=== PATIENT | male | born 1975 | race African-American/Black ===

== ENCOUNTER 2020-03-06 07:49 | Emergency (ER) | payer SELFPAY ==
[~2020-03-06] VITALS: Ht 188 cm; Wt 88.0 kg
[2020-03-06] MEDS ORDERED: KETOROLAC 30MG/ML VIAL IM ONE (08:15)
[2020-03-06 09:12] VITALS: BP 122/76
== END 2020-03-06 09:16 | disposition home or self-care (01) ==
LOC: ER 08:08
DX: S40.012A Contusion of left shoulder, initial encounter (principal); Y08.89XA Assault by other specified means, initial encounter; Y93.89 Activity, other specified; Y92.89 Other specified places as the place of occurrence of the external cause; Y99.8 Other external cause status
CPT/HCPCS: 73030; 96372; 99283; J1885

== ENCOUNTER 2021-02-04 04:29 | Inpatient (IN) | payer MEDICAID ==
[~2021-02-04] VITALS: Ht 188 cm; Wt 82.6 kg
[2021-02-04] MEDS ORDERED: ACETAMINOPHEN 325MG TABLET PO STA (04:55)
[2021-02-04] MEDS ORDERED: ONDANSETRON HCL 4MG/2ML INJ IV STA (04:55)
[2021-02-04] MEDS ORDERED: AZITHROMYCIN 500 MG in DEXT 5% WATER 250 ML IV ONE (05:00)
[2021-02-04] MEDS ORDERED: SODIUM CHLORIDE 0.9% 1,000 ML IV ONE (05:00)
[2021-02-04] MEDS ORDERED: CEFTRIAXONE 1 G PREMIX 50 ML IV ONE (05:00)
[2021-02-04 05:23] LABS: BG BASE EXCESS -0.6 mmol/L (-2.0-2.0); BG CARBOXYHEMOGLOBIN 1.6 % (0.5-1.5); BG HCO3 ACT 24.3 mmol/L (22.0-26.0); BG METHEMOGLOBIN 0.1 % (0.0-1.5); BG OXYGEN SATURATION 95.9 % (92.0-98.5); BG OXYHEMOGLOBIN 94.3 % (94.0-97.0); BG PCO2 41.2 mmHg (35.0-45.0); BG PH 7.389 (7.350-7.450); BG PO2 82.3 mmHg (75.0-100.0); BG TOTAL HEMOGLOBIN 13.4 g/dL (12.0-18.0)
[2021-02-04 05:25] LABS: CHLORIDE 104 mEq/L (98-107)
[2021-02-04 05:27] LABS: BASOPHILS % 0.5 % (0.0-2.0); EOSINOPHILS % 2.5 % (0.0-5.0); HEMATOCRIT. 40.5 % (42.0-52.0); HEMOGLOBIN. 13.2 g/dL (14.0-18.0); MEAN CORPUSCULAR VOLUME 98.6 fL (80.0-94.0); MEAN PLATELET VOLUME 10.4 fl (7.4-10.4); MONOCYTES % 5.6 % (2.0-8.0); NEUTROPHILS % 82.4 % (40.0-76.0); PLATELET 253 x1000/uL (130-400); RED BLOOD CELL COUNT 4.11 mill/uL (4.7-6.1); RED CELL DISTRIBUTION WIDTH 13.1 % (11.6-14.6)
[2021-02-04 06:01] LABS: D-DIMER 3.04 mg/L FEU (<0.50)
[2021-02-04] MEDS ORDERED: ACETAMINOPHEN 325MG TABLET PO PRN ×2 (08:00)
[2021-02-04] MEDS ORDERED: ZOLPIDEM TARTRATE 5MG TABLET PO PRN (08:00)
[2021-02-04] MEDS ORDERED: NOREPINEPHRINE 8 MG in DEXT 5% WATER 242 ML IV PRN ×2 (08:00→08:45)
[2021-02-04] MEDS ORDERED: GUAIFENESIN 200MG/10ML SUGAR FREE UDC PO PRN (08:00)
[2021-02-04] MEDS ORDERED: ALBUTEROL 6.7GM HFA INHALER ORI PRN (08:00)
[2021-02-04] MEDS ORDERED: NITROGLYCERIN 0.4MG TABLET SL SL PRN (08:00)
[2021-02-04] MEDS ORDERED: ONDANSETRON HCL 4MG/2ML INJ IV PRN (08:00)
[2021-02-04] MEDS ORDERED: DOCUSATE SODIUM 100MG CAPSULE PO PRN (08:00)
[2021-02-04] MEDS ORDERED: MAGNESIUM/ALUMINUM HYDROXIDE/SIMETHICONE 30ML UDC PO PRN (08:00)
[2021-02-04] MEDS ORDERED: CLONIDINE 0.1MG TABLET PO PRN (08:00)
[2021-02-04 08:54] LABS: ETHANOL BLOOD < 10 mg/dL
[2021-02-04] MEDS: GUAIFENESIN/DM 600MG/30MG ER TAB 12HR PO SCH ×2 (08:54→21:19)
[2021-02-04] MEDS: ASCORBIC ACID 500 MG TABLET PO SCH ×2 (08:54→21:19)
[2021-02-04] MEDS: ASPIRIN 81MG EC TABLET PO SCH (08:54)
[2021-02-04] MEDS: SPIRONOLACTONE 25MG TABLET PO SCH ×2 (08:54→21:19)
[2021-02-04] MEDS: FAMOTIDINE 20MG TABLET PO SCH ×2 (08:54→21:19)
[2021-02-04] MEDS: FUROSEMIDE 40MG/4ML VIAL IVP SCH ×2 (08:55→17:50)
[2021-02-04] MEDS: ENOXAPARIN 40MG/0.4ML SYR SUBCUT SCH (08:55)
[2021-02-04] MEDS: ZINC SULFATE 220 MG ( 50 ) CAPSULE PO SCH (08:55)
[2021-02-04 08:56] LABS: TOTAL IRON BINDING CAPACITY 296 ug/dL (250-450)
[2021-02-04 08:57] LABS: LDL CHOLESTEROL 72 mg/dL (5-100)
[2021-02-04 08:58] LABS: HDL CHOLESTEROL 83 mg/dL (40-59)
[2021-02-04 08:59] LABS: T4 FREE 1.17 ng/dL (0.76-1.46)
[2021-02-04 09:41] LABS: *BARBITURATES SCREEN URINE NEGATIVE (NEGATIVE); *BENZODIAZEPINES SCREEN URINE NEGATIVE (NEGATIVE); *COCAINE SCREEN URINE PRESUMTIVE POSITIVE (NEGATIVE); METHADONE URINE SCREEN NEGATIVE (NEGATIVE); OPIATES URINE SCREEN NEGATIVE (NEGATIVE)
[2021-02-04 09:42] LABS: *AMPHETAMINES SCREEN URINE PRESUMTIVE POSITIVE (NEGATIVE); CANNABINOID URINE SCREEN PRESUMTIVE POSITIVE (NEGATIVE); PHENCYCLIDINE URINE SCREEN NEGATIVE (NEGATIVE)
[2021-02-04] MEDS: CHOLECALCIFEROL (D3) 1000 UNIT TABLET PO SCH (09:50)
[2021-02-04] MEDS: ALBUTEROL 6.7GM HFA INHALER ORI SCH ×3 (10:33→20:59)
[2021-02-04 15:15] VITALS: BP 144/73
[2021-02-04 20:00] VITALS: BP 130/86
[2021-02-04 21:33] LABS: CREATINE KINASE MB FRACTION 4.7 ng/mL (0.5-3.6)
[2021-02-05] VITALS: BP 111/61
[2021-02-05] MEDS: ALBUTEROL 6.7GM HFA INHALER ORI SCH (01:28)
[2021-02-05] MEDS ORDERED: ALBUTEROL (0.083%) 2.5MG/3ML NEB HHN PRN (02:15)
[2021-02-05 04:00] VITALS: BP 105/57
[2021-02-05 05:39] LABS: BASOPHILS % 0.5 % (0.0-2.0); EOSINOPHILS % 1.7 % (0.0-5.0); HEMATOCRIT. 39.1 % (42.0-52.0); HEMOGLOBIN. 12.9 g/dL (14.0-18.0); LYMPHOCYTES % 9.5 % (20.0-50.0); MEAN CORPUSCULAR HEMOGLOBIN 32.7 pg (28.0-32.0); MEAN CORPUSCULAR VOLUME 99.2 fL (80.0-94.0); MEAN PLATELET VOLUME 10.9 fl (7.4-10.4); MONOCYTES % 9.4 % (2.0-8.0); NEUTROPHILS % 78.9 % (40.0-76.0); PLATELET 226 x1000/uL (130-400); RED BLOOD CELL COUNT 3.94 mill/uL (4.7-6.1); RED CELL DISTRIBUTION WIDTH 13.4 % (11.6-14.6)
[2021-02-05 05:50] LABS: CHLORIDE 102 mEq/L (98-107)
[2021-02-05] MEDS ORDERED: AZITHROMYCIN 500 MG in DEXT 5% WATER 250 ML IV SCH (06:00)
[2021-02-05] MEDS ORDERED: ALBUTEROL (0.083%) 2.5MG/3ML NEB HHN SCH (06:00)
[2021-02-05] MEDS ORDERED: CEFTRIAXONE 1 G PREMIX 50 ML IV SCH (06:00)
[2021-02-05 06:01] LABS: CREATINE KINASE 511 IU/L (39-308); PHOSPHORUS 2.9 mg/dL (2.5-4.9)
[2021-02-05] MEDS: AZITHROMYCIN 500 MG in DEXT 5% WATER 250 ML IV SCH (06:05)
[2021-02-05] MEDS: FUROSEMIDE 40MG/4ML VIAL IVP SCH ×2 (06:05→17:46)
[2021-02-05 06:06] LABS: CREATINE KINASE MB FRACTION 2.4 ng/mL (0.5-3.6)
[2021-02-05 08:35] VITALS: BP 103/66
[2021-02-05] MEDS: CHOLECALCIFEROL (D3) 1000 UNIT TABLET PO SCH (09:05)
[2021-02-05] MEDS: ASPIRIN 81MG EC TABLET PO SCH (09:05)
[2021-02-05] MEDS: SPIRONOLACTONE 25MG TABLET PO SCH ×2 (09:05→21:01)
[2021-02-05] MEDS: FAMOTIDINE 20MG TABLET PO SCH ×2 (09:06→20:58)
[2021-02-05] MEDS: ASCORBIC ACID 500 MG TABLET PO SCH ×2 (09:06→20:58)
[2021-02-05] MEDS: ZINC SULFATE 220 MG ( 50 ) CAPSULE PO SCH (09:06)
[2021-02-05] MEDS: GUAIFENESIN/DM 600MG/30MG ER TAB 12HR PO SCH ×2 (09:06→20:57)
[2021-02-05] MEDS: ENOXAPARIN 40MG/0.4ML SYR SUBCUT SCH (09:09)
[2021-02-05] MEDS: CEFTRIAXONE 1,000 MG in DEXTROSE 5% WATER 50 ML IV SCH (09:09)
[2021-02-05] MEDS ORDERED: IPRATROPIUM/ALBUTEROL 0.5-3(2.5)MG/3ML NEB HHN PRN (12:00)
[2021-02-05] MEDS: IPRATROPIUM/ALBUTEROL 0.5-3(2.5)MG/3ML NEB HHN SCH ×2 (13:05→21:18)
[2021-02-05 16:49] VITALS: BP 111/80
[2021-02-05 20:00] VITALS: BP 100/59
[2021-02-06] VITALS (7 sets, daily range): BP systolic 76–114; BP diastolic 46–72
[2021-02-06] MEDS: IPRATROPIUM/ALBUTEROL 0.5-3(2.5)MG/3ML NEB HHN SCH ×5 (02:29→21:06)
[2021-02-06] MEDS: AZITHROMYCIN 500 MG in DEXT 5% WATER 250 ML IV SCH (05:42)
[2021-02-06] MEDS: FUROSEMIDE 40MG/4ML VIAL IVP SCH ×2 (05:42→17:29)
[2021-02-06 06:03] LABS: CHLORIDE 103 mEq/L (98-107)
[2021-02-06 06:20] LABS: PHOSPHORUS 3.4 mg/dL (2.5-4.9)
[2021-02-06 06:25] LABS: BASOPHILS % 0.7 % (0.0-2.0); EOSINOPHILS % 6.1 % (0.0-5.0); HEMATOCRIT. 39.4 % (42.0-52.0); LYMPHOCYTES % 25.2 % (20.0-50.0); MEAN CORPUSCULAR HEMOGLOBIN 32.6 pg (28.0-32.0); MEAN CORPUSCULAR VOLUME 98.5 fL (80.0-94.0); MEAN PLATELET VOLUME 10.4 fl (7.4-10.4); MONOCYTES % 11.9 % (2.0-8.0); NEUTROPHILS % 56.1 % (40.0-76.0); PLATELET 233 x1000/uL (130-400); RED CELL DISTRIBUTION WIDTH 12.9 % (11.6-14.6)
[2021-02-06] MEDS: BUDESONIDE 0.5MG/2ML NEB HHN SCH ×2 (08:00→21:05)
[2021-02-06] MEDS ORDERED: LISINOPRIL 5MG TABLET PO SCH (09:00)
[2021-02-06] MEDS ORDERED: IOHEXOL-350 100 ML BOTTLE ONE (09:08)
[2021-02-06] MEDS: CHOLECALCIFEROL (D3) 1000 UNIT TABLET PO SCH (09:11)
[2021-02-06] MEDS: ENOXAPARIN 40MG/0.4ML SYR SUBCUT SCH (09:11)
[2021-02-06] MEDS: GUAIFENESIN/DM 600MG/30MG ER TAB 12HR PO SCH ×2 (09:12→21:45)
[2021-02-06] MEDS: ZINC SULFATE 220 MG ( 50 ) CAPSULE PO SCH (09:13)
[2021-02-06] MEDS: FAMOTIDINE 20MG TABLET PO SCH ×2 (09:13→21:45)
[2021-02-06] MEDS: ASPIRIN 81MG EC TABLET PO SCH (09:13)
[2021-02-06] MEDS: ASCORBIC ACID 500 MG TABLET PO SCH ×2 (09:13→21:45)
[2021-02-06] MEDS: CEFTRIAXONE 1,000 MG in DEXTROSE 5% WATER 50 ML IV SCH (09:19)
[2021-02-06] MEDS: SPIRONOLACTONE 25MG TABLET PO SCH ×2 (09:20→21:45)
[2021-02-07] VITALS: BP 97/58
[2021-02-07] MEDS: IPRATROPIUM/ALBUTEROL 0.5-3(2.5)MG/3ML NEB HHN SCH ×4 (01:28→20:25)
[2021-02-07 04:00] VITALS: BP 94/58
[2021-02-07] MEDS: FUROSEMIDE 40MG/4ML VIAL IVP SCH (06:47)
[2021-02-07 08:00] VITALS: BP 111/69
[2021-02-07] MEDS: KETOROLAC 15MG/ML VIAL IV PRN ×2 (08:25→21:08)
[2021-02-07] MEDS: ASCORBIC ACID 500 MG TABLET PO SCH ×2 (08:26→21:09)
[2021-02-07] MEDS: CHOLECALCIFEROL (D3) 1000 UNIT TABLET PO SCH (08:26)
[2021-02-07] MEDS: FAMOTIDINE 20MG TABLET PO SCH ×2 (08:26→21:23)
[2021-02-07] MEDS: ASPIRIN 81MG EC TABLET PO SCH (08:26)
[2021-02-07] MEDS: GUAIFENESIN/DM 600MG/30MG ER TAB 12HR PO SCH ×2 (08:26→21:23)
[2021-02-07] MEDS: SPIRONOLACTONE 25MG TABLET PO SCH ×2 (08:26→21:00)
[2021-02-07] MEDS: ENOXAPARIN 40MG/0.4ML SYR SUBCUT SCH (08:27)
[2021-02-07] MEDS: ZINC SULFATE 220 MG ( 50 ) CAPSULE PO SCH (08:28)
[2021-02-07] MEDS: BUDESONIDE 0.5MG/2ML NEB HHN SCH ×2 (09:36→20:25)
[2021-02-07 12:00] VITALS: BP 97/61
[2021-02-07 12:29] LABS: CHLORIDE 100 mEq/L (98-107)
[2021-02-07] MEDS: METOPROLOL TARTRATE 25MG TABLET PO SCH ×2 (12:45→21:00)
[2021-02-07 16:00] VITALS: BP 86/56
[2021-02-07] MEDS: FUROSEMIDE 40MG TABLET PO SCH (18:10)
[2021-02-08] VITALS: BP 110/54
[2021-02-08] MEDS: IPRATROPIUM/ALBUTEROL 0.5-3(2.5)MG/3ML NEB HHN SCH ×2 (00:20→07:52)
[2021-02-08 04:00] VITALS: BP 110/64
[2021-02-08] MEDS: FUROSEMIDE 40MG TABLET PO SCH (05:06)
[2021-02-08] MEDS: BUDESONIDE 0.5MG/2ML NEB HHN SCH (07:52)
[2021-02-08 08:00] VITALS: BP 93/50
[2021-02-08] MEDS: METOPROLOL TARTRATE 25MG TABLET PO SCH (08:29)
[2021-02-08] MEDS: CHOLECALCIFEROL (D3) 1000 UNIT TABLET PO SCH (08:48)
[2021-02-08] MEDS: GUAIFENESIN/DM 600MG/30MG ER TAB 12HR PO SCH (08:48)
[2021-02-08] MEDS: ZINC SULFATE 220 MG ( 50 ) CAPSULE PO SCH (08:48)
[2021-02-08] MEDS: ASPIRIN 81MG EC TABLET PO SCH (08:48)
[2021-02-08] MEDS: SPIRONOLACTONE 25MG TABLET PO SCH (08:49)
[2021-02-08] MEDS: FAMOTIDINE 20MG TABLET PO SCH (08:49)
[2021-02-08] MEDS: ASCORBIC ACID 500 MG TABLET PO SCH (08:49)
[2021-02-08] MEDS: ENOXAPARIN 40MG/0.4ML SYR SUBCUT SCH (08:50)
[2021-02-08 09:35] VITALS: BP 93/50
== END 2021-02-08 10:10 | disposition home or self-care (01) | DRG 720 ==
LOC: ER 04:43 → 7WST 05:17 → EDBEDREQSVC 11:05 → ENRESERV 12:34 → 6WST 02-05 01:50
PROVIDERS: ADMIT Internal Medicine; ATTEND Internal Medicine
DX: A41.9 Sepsis, unspecified organism (principal); J96.01 Acute respiratory failure with hypoxia; I21.A1 Myocardial infarction type 2; I47.2 Ventricular tachycardia; E44.0 Moderate protein-calorie malnutrition; I50.43 Acute on chronic combined systolic (congestive) and diastolic (congestive) heart failure; I42.0 Dilated cardiomyopathy; E83.51 Hypocalcemia; J18.9 Pneumonia, unspecified organism; J44.0 Chronic obstructive pulmonary disease with (acute) lower respiratory infection; F12.10 Cannabis abuse, uncomplicated; F14.10 Cocaine abuse, uncomplicated; F17.210 Nicotine dependence, cigarettes, uncomplicated; I34.0 Nonrheumatic mitral (valve) insufficiency; R74.01 Elevation of levels of liver transaminase levels; R04.2 Hemoptysis; I11.0 Hypertensive heart disease with heart failure; Z68.23 Body mass index [BMI] 23.0-23.9, adult; Y92.89 Other specified places as the place of occurrence of the external cause; F10.10 Alcohol abuse, uncomplicated; F15.10 Other stimulant abuse, uncomplicated; Z71.51 Drug abuse counseling and surveillance of drug abuser
CPT/HCPCS: 36415; 36600; 71045; 71275; 80048; 80053; 80061; 80305; 80320; 82375; 82550; 82553; 82607; 82746; 82805; 83036; 83540; 83550; 83605; 83615; 83735; 83880; 84100; 84145; 84439; 84443; 84484; 85025; 85379; 87070; 93005; 93306; 93970; 94640; 97116; 97161; 97166; 97530; 97535; 99291; J0456; J0696; J1650; J1885; J1940; J2405; J7030; J7040; J7060; J7626; Q9967; U0003; G0480

== ENCOUNTER 2021-07-28 05:30 | Inpatient (IN) | payer MEDICAID ==
[~2021-07-28] VITALS: Ht 185.4 cm; Wt 65.6 kg
[2021-07-28] VITALS (12 sets, daily range): BP systolic 94–134; BP diastolic 56–97
[~2021-07-28 05:30] MED LIST: CARV3.1242 MT; FURO-151 MT; LOSA25TA26 MT; POTA20TA82 MT
[2021-07-28 07:23] LABS: BASOPHILS % 0.5 % (0.0-2.0); EOSINOPHILS % 3.2 % (0.0-5.0); HEMATOCRIT. 35.2 % (42.0-52.0); HEMOGLOBIN. 11.2 g/dL (14.0-18.0); LYMPHOCYTES % 14.3 % (20.0-50.0); MEAN CORPUSCULAR VOLUME 100.4 fL (80.0-94.0); MEAN PLATELET VOLUME 9.6 fl (7.4-10.4); MONOCYTES % 7.6 % (2.0-8.0); NEUTROPHILS % 74.4 % (40.0-76.0); PLATELET 226 x1000/uL (130-400); RED BLOOD CELL COUNT 3.51 mill/uL (4.7-6.1); RED CELL DISTRIBUTION WIDTH 17.9 % (11.6-14.6)
[2021-07-28 07:27] LABS: CHLORIDE 112 mEq/L (98-107)
[2021-07-28] MEDS ORDERED: CEFTRIAXONE 1 G PREMIX 50 ML IV ONE (08:00)
[2021-07-28] MEDS ORDERED: AZITHROMYCIN 500MG/250ML 250 ML IV ONE (08:00)
[2021-07-28] MEDS ORDERED: NITROGLYCERIN 0.4MG TABLET SL SL ONE (10:00)
[2021-07-28] MEDS ORDERED: LORAZEPAM 2MG/ML CPJ IV ONE ×2 (10:30→16:30)
[2021-07-28] MEDS ORDERED: LORAZEPAM 2MG/ML CPJ ONE (10:34)
[2021-07-28] MEDS ORDERED: FENTANYL CITRATE/PF 50MCG/ML 2ML VIAL IV ONE (10:45)
[2021-07-28] MEDS ORDERED: MIDAZOLAM HCL 100 MG in DEXT 5% WATER 80 ML IV ONE (10:45)
[2021-07-28] MEDS ORDERED: ETOMIDATE 2MG/ML 10ML VIAL IV ONE ×2 (10:45→13:53)
[2021-07-28] MEDS ORDERED: SUCCINYLCHOLINE CHLORIDE 200MG/10ML IV ONE ×2 (10:45→13:53)
[2021-07-28] MEDS ORDERED: FENTANYL CITRATE/PF 50MCG/ML 2ML VIAL ONE (10:49)
[2021-07-28 11:29] LABS: BG BASE EXCESS -4.9 mmol/L (-2.0-2.0); BG CARBOXYHEMOGLOBIN 0.2 % (0.5-1.5); BG DEOXYHEMOGLOBIN 0.5 % (0.0-5.0); BG FRACTION INSPIRED OXYGEN 100; BG HCO3 ACT 21.9 mmol/L (22.0-26.0); BG METHEMOGLOBIN 0.6 % (0.0-1.5); BG OXYGEN SATURATION 99.5 % (92.0-98.5); BG OXYHEMOGLOBIN 98.7 % (94.0-97.0); BG PH 7.278 (7.350-7.450); BG PO2 306.1 mmHg (75.0-100.0); BG SAMPLE SITE RIGHT FEMORAL; BG TOTAL HEMOGLOBIN 12.2 g/dL (12.0-18.0); BG VENT MODE VENT - AC
[2021-07-28] MEDS ORDERED: NOREPINEPHRINE 8 MG in DEXT 5% WATER 242 ML IV STA (11:30)
[2021-07-28] MEDS ORDERED: DOBUTAMINE 250MG PREMIX 250 ML IV ONE (11:30)
[2021-07-28] MEDS ORDERED: NOREPINEPHRINE 8MG/250ML PMX 250 ML IV STA (11:38)
[2021-07-28 12:45] LABS: CHLORIDE 110 mEq/L (98-107)
[2021-07-28] MEDS ORDERED: ACETAMINOPHEN 325MG TABLET PO PRN ×2 (13:00)
[2021-07-28] MEDS ORDERED: ENOXAPARIN 40MG/0.4ML SYR SUBCUT SCH (13:00)
[2021-07-28] MEDS ORDERED: KETOROLAC 15MG/ML VIAL IV PRN (13:00)
[2021-07-28] MEDS ORDERED: NITROGLYCERIN 0.4MG TABLET SL SL PRN (13:00)
[2021-07-28] MEDS ORDERED: ONDANSETRON HCL 4MG/2ML INJ IV PRN (13:00)
[2021-07-28] MEDS ORDERED: DOCUSATE SODIUM 100MG CAPSULE PO PRN (13:00)
[2021-07-28] MEDS ORDERED: CLONIDINE 0.1MG TABLET PO PRN (13:00)
[2021-07-28] MEDS ORDERED: MAGNESIUM/ALUMINUM HYDROXIDE/SIMETHICONE 30ML UDC PO PRN (13:00)
[2021-07-28] MEDS ORDERED: GUAIFENESIN 200MG/10ML SUGAR FREE UDC PO PRN (13:00)
[2021-07-28] MEDS ORDERED: ALBUTEROL 6.7GM HFA INHALER ORI PRN (13:00)
[2021-07-28 14:31] LABS: T4 FREE 1.12 ng/dL (0.76-1.46)
[2021-07-28 14:39] LABS: ETHANOL BLOOD < 10 mg/dL
[2021-07-28] MEDS: METHYLPREDNISOLONE SOD SUCC 125 MG/2 ML VIAL IV SCH (14:44)
[2021-07-28] MEDS: PANTOPRAZOLE SODIUM 40 MG/VIAL IV SCH (14:44)
[2021-07-28 14:48] LABS: CREATINE KINASE 354 IU/L (39-308); CREATINE KINASE MB FRACTION 2.7 ng/mL (0.5-3.6)
[2021-07-28 14:48] LABS: FOLIC ACID (FOLATE) SERUM 7.9 ng/mL (>5.38)
[2021-07-28] MEDS ORDERED: ALBUTEROL 6.7GM HFA INHALER ORI SCH (15:00)
[2021-07-28] MEDS ORDERED: IOHEXOL-350 100 ML BOTTLE ONE ×2 (16:01→23:40)
[2021-07-28] MEDS ORDERED: SODIUM POLYSTYRENE SULFONATE 15 G/60 ML BOT PO NR (16:30)
[2021-07-28 16:33] LABS: *AMPHETAMINES SCREEN URINE NEGATIVE (NEGATIVE)
[2021-07-28 16:34] LABS: *BARBITURATES SCREEN URINE NEGATIVE (NEGATIVE); *BENZODIAZEPINES SCREEN URINE PRESUMTIVE POSITIVE (NEGATIVE); *COCAINE SCREEN URINE PRESUMTIVE POSITIVE (NEGATIVE); CANNABINOID URINE SCREEN PRESUMTIVE POSITIVE (NEGATIVE); METHADONE URINE SCREEN NEGATIVE (NEGATIVE); OPIATES URINE SCREEN NEGATIVE (NEGATIVE); PHENCYCLIDINE URINE SCREEN NEGATIVE (NEGATIVE)
[2021-07-28] MEDS ORDERED: NOREPINEPHRINE 8MG/250ML PMX 250ML IV PRN (17:00)
[2021-07-28] MEDS: MIDAZOLAM HCL 100 MG in SODIUM CHLORIDE 0.9% 100 ML IV PRN (17:10)
[2021-07-28] MEDS ORDERED: FENTANYL CITRATE/PF 2,500 MCG in SODIUM CHLORIDE 0.9% 200 ML IV PRN (17:15)
[2021-07-28] MEDS: FENTANYL CITRATE/PF 2,500 MCG in SODIUM CHLORIDE 0.9% 200 ML IV PRN (17:20)
[2021-07-28] MEDS: FUROSEMIDE 40MG/4ML VIAL IVP SCH (18:38)
[2021-07-28] MEDS: SPIRONOLACTONE 25MG TABLET PO SCH (19:11)
[2021-07-28] MEDS ORDERED: NOREPINEPHRINE 8 MG in DEXT 5% WATER 242 ML IV PRN (23:00)
[2021-07-28 23:41] LABS: CREATINE KINASE MB FRACTION 3.7 ng/mL (0.5-3.6)
[2021-07-29] VITALS (84 sets, daily range): BP systolic 60–133; BP diastolic 38–83
[2021-07-29] MEDS: ENOXAPARIN 80MG/0.8ML SYR SUBCUT SCH ×3 (01:04→22:21)
[2021-07-29] MEDS: FENTANYL CITRATE/PF 2,500 MCG in SODIUM CHLORIDE 0.9% 200 ML IV PRN ×2 (01:05→06:20)
[2021-07-29] MEDS: MIDAZOLAM HCL 100 MG in SODIUM CHLORIDE 0.9% 100 ML IV PRN (01:08)
[2021-07-29] MEDS ORDERED: MIDAZOLAM 100MG/100ML PMX 100 ML IV PRN (01:15)
[2021-07-29] MEDS ORDERED: MIDAZOLAM HCL 100 MG in SODIUM CHLORIDE 0.9% 100 ML IV PRN (01:30)
[2021-07-29] MEDS ORDERED: NOREPINEPHRINE 8 MG in DEXT 5% WATER 242 ML IV PRN (03:00)
[2021-07-29 05:49] LABS: BASOPHILS % 0.2 % (0.0-2.0); HEMOGLOBIN. 11.2 g/dL (14.0-18.0); LYMPHOCYTES % 7.1 % (20.0-50.0); MEAN CORPUSCULAR HEMOGLOBIN 32.6 pg (28.0-32.0); MEAN CORPUSCULAR VOLUME 98.3 fL (80.0-94.0); MEAN PLATELET VOLUME 10.3 fl (7.4-10.4); MONOCYTES % 8.6 % (2.0-8.0); NEUTROPHILS % 84.1 % (40.0-76.0); PLATELET 218 x1000/uL (130-400); RED BLOOD CELL COUNT 3.45 mill/uL (4.7-6.1); RED CELL DISTRIBUTION WIDTH 18.7 % (11.6-14.6)
[2021-07-29 05:53] LABS: CHLORIDE 111 mEq/L (98-107)
[2021-07-29 06:06] LABS: PHOSPHORUS 2.7 mg/dL (2.5-4.9)
[2021-07-29 06:07] LABS: LDL CHOLESTEROL 80 mg/dL (5-100)
[2021-07-29 06:09] LABS: HDL CHOLESTEROL 58 mg/dL (40-59)
[2021-07-29] MEDS: FUROSEMIDE 40MG/4ML VIAL IVP SCH ×2 (06:19→17:13)
[2021-07-29] MEDS: METHYLPREDNISOLONE SOD SUCC 125 MG/2 ML VIAL IV SCH ×3 (06:19→22:21)
[2021-07-29] MEDS: ASPIRIN 325MG EC TABLET PO SCH (09:00)
[2021-07-29] MEDS ORDERED: AZITHROMYCIN 500 MG in DEXT 5% WATER 250 ML IV SCH (09:00)
[2021-07-29] MEDS ORDERED: CEFTRIAXONE 1 G PREMIX 50 ML IV SCH (09:00)
[2021-07-29 09:05] LABS: BG BASE EXCESS 0.8 mmol/L (-2.0-2.0); BG CARBOXYHEMOGLOBIN 0.2 % (0.5-1.5); BG DEOXYHEMOGLOBIN 0.7 % (0.0-5.0); BG FRACTION INSPIRED OXYGEN 50; BG METHEMOGLOBIN 0.3 % (0.0-1.5); BG OXYGEN SATURATION 99.3 % (92.0-98.5); BG OXYHEMOGLOBIN 98.8 % (94.0-97.0); BG PH 7.618 (7.350-7.450); BG SAMPLE SITE RIGHT RADIAL; BG TOTAL HEMOGLOBIN 13.3 g/dL (12.0-18.0); BG VENT MODE VENT - AC
[2021-07-29] MEDS: SPIRONOLACTONE 25MG TABLET PO SCH ×2 (09:22→17:13)
[2021-07-29] MEDS: AZITHROMYCIN 500 MG in DEXT 5% WATER 250 ML IV SCH (09:24)
[2021-07-29] MEDS: CEFTRIAXONE 1,000 MG in DEXTROSE 5% WATER 50 ML IV SCH (09:24)
[2021-07-29] MEDS: PANTOPRAZOLE SODIUM 40 MG/VIAL IV SCH (09:25)
[2021-07-29] MEDS ORDERED: POTASSIUM CHLORIDE 20MEQ/PACKET PO SCH (09:45)
[2021-07-29] MEDS ORDERED: IPRATROPIUM/ALBUTEROL 0.5-3(2.5)MG/3ML NEB HHN PRN (09:45)
[2021-07-29] MEDS ORDERED: LORAZEPAM 2MG/ML CPJ IV PRN (09:45)
[2021-07-29] MEDS ORDERED: MAGNESIUM 2 G PREMIX 50 ML IV SCH (11:00)
[2021-07-29 11:29] LABS: BG BASE EXCESS 1.2 mmol/L (-2.0-2.0); BG CARBOXYHEMOGLOBIN 0.4 % (0.5-1.5); BG FRACTION INSPIRED OXYGEN 40; BG HCO3 ACT 27.3 mmol/L (22.0-26.0); BG METHEMOGLOBIN 0.4 % (0.0-1.5); BG OXYGEN SATURATION 92.9 % (92.0-98.5); BG OXYHEMOGLOBIN 92.2 % (94.0-97.0); BG PCO2 49.6 mmHg (35.0-45.0); BG PH 7.359 (7.350-7.450); BG PO2 76.5 mmHg (75.0-100.0); BG SAMPLE SITE RIGHT RADIAL; BG TOTAL HEMOGLOBIN 12.5 g/dL (12.0-18.0); BG VENT MODE VENT - CPAP
[2021-07-29] MEDS: IPRATROPIUM/ALBUTEROL 0.5-3(2.5)MG/3ML NEB HHN SCH (19:47)
[2021-07-30] VITALS: BP 101/65
[2021-07-30] MEDS: IPRATROPIUM/ALBUTEROL 0.5-3(2.5)MG/3ML NEB HHN SCH ×4 (01:23→21:09)
[2021-07-30 04:00] VITALS: BP 95/56
[2021-07-30] MEDS: FUROSEMIDE 40MG/4ML VIAL IVP SCH ×2 (06:33→18:23)
[2021-07-30] MEDS: METHYLPREDNISOLONE SOD SUCC 125 MG/2 ML VIAL IV SCH ×3 (06:33→22:10)
[2021-07-30 06:56] LABS: INR 1.1; PROTHROMBIN TIME 11.8 sec (9.6-11.0)
[2021-07-30 08:00] VITALS: BP 100/69
[2021-07-30] MEDS: ENOXAPARIN 80MG/0.8ML SYR SUBCUT SCH ×2 (08:42→22:10)
[2021-07-30] MEDS: SPIRONOLACTONE 25MG TABLET PO SCH ×2 (08:44→18:23)
[2021-07-30] MEDS: PANTOPRAZOLE SODIUM 40 MG/VIAL IV SCH (08:45)
[2021-07-30] MEDS: ASPIRIN 325MG EC TABLET PO SCH (08:45)
[2021-07-30] MEDS: CEFTRIAXONE 1,000 MG in DEXTROSE 5% WATER 50 ML IV SCH (11:53)
[2021-07-30 12:00] VITALS: BP 108/72
[2021-07-30] MEDS: AZITHROMYCIN 500 MG in DEXT 5% WATER 250 ML IV SCH (14:06)
[2021-07-30 16:00] VITALS: BP 104/47
[2021-07-30 20:00] VITALS: BP 100/66
[2021-07-31] VITALS: BP 103/60
[2021-07-31] MEDS: IPRATROPIUM/ALBUTEROL 0.5-3(2.5)MG/3ML NEB HHN SCH ×3 (01:20→21:02)
[2021-07-31 04:00] VITALS: BP 103/61
[2021-07-31] MEDS: METHYLPREDNISOLONE SOD SUCC 125 MG/2 ML VIAL IV SCH ×3 (06:19→21:39)
[2021-07-31] MEDS: FUROSEMIDE 40MG/4ML VIAL IVP SCH ×2 (06:19→18:59)
[2021-07-31 08:00] VITALS: BP 104/76
[2021-07-31] MEDS: ASPIRIN 325MG EC TABLET PO SCH (10:32)
[2021-07-31] MEDS: CEFTRIAXONE 1,000 MG in DEXTROSE 5% WATER 50 ML IV SCH (10:32)
[2021-07-31] MEDS: AZITHROMYCIN 500 MG in DEXT 5% WATER 250 ML IV SCH (10:32)
[2021-07-31] MEDS: SPIRONOLACTONE 25MG TABLET PO SCH ×2 (10:34→18:58)
[2021-07-31] MEDS: FAMOTIDINE 20MG/2ML VIAL IV SCH ×2 (10:35→21:39)
[2021-07-31] MEDS: ENOXAPARIN 80MG/0.8ML SYR SUBCUT SCH (10:36)
[2021-07-31 16:00] VITALS: BP 94/59
[2021-07-31 20:00] VITALS: BP 98/53
[2021-07-31] MEDS: ENOXAPARIN 60MG/0.6ML SYR SUBCUT SCH (21:39)
[2021-08-01 00:30] VITALS: BP 108/63
[2021-08-01] MEDS: IPRATROPIUM/ALBUTEROL 0.5-3(2.5)MG/3ML NEB HHN SCH ×4 (00:57→21:45)
[2021-08-01] MEDS: METHYLPREDNISOLONE SOD SUCC 125 MG/2 ML VIAL IV SCH ×3 (06:36→21:21)
[2021-08-01] MEDS: FUROSEMIDE 40MG/4ML VIAL IVP SCH (06:36)
[2021-08-01 08:00] VITALS: BP 105/66
[2021-08-01] MEDS: CEFTRIAXONE 1,000 MG in DEXTROSE 5% WATER 50 ML IV SCH (08:26)
[2021-08-01] MEDS: AZITHROMYCIN 500 MG in DEXT 5% WATER 250 ML IV SCH (09:26)
[2021-08-01] MEDS: ASPIRIN 325MG EC TABLET PO SCH (09:26)
[2021-08-01] MEDS: FAMOTIDINE 20MG/2ML VIAL IV SCH ×2 (09:26→21:20)
[2021-08-01] MEDS: SPIRONOLACTONE 25MG TABLET PO SCH ×2 (09:26→16:37)
[2021-08-01] MEDS: METOPROLOL SUCCINATE 50MG ER TABLET PO SCH (10:25)
[2021-08-01] MEDS: ENOXAPARIN 60MG/0.6ML SYR SUBCUT SCH ×2 (10:25→21:21)
[2021-08-01 12:00] VITALS: BP 90/55
[2021-08-01 13:20] LABS: CHLORIDE 101 mEq/L (98-107)
[2021-08-01 13:25] LABS: PHOSPHORUS 2.9 mg/dL (2.5-4.9)
[2021-08-01 15:58] VITALS: BP 92/58
[2021-08-01] MEDS: FUROSEMIDE 40MG TABLET PO SCH (16:37)
[2021-08-01 20:35] VITALS: BP 99/61
[2021-08-02 00:13] VITALS: BP 96/63
[2021-08-02] MEDS: IPRATROPIUM/ALBUTEROL 0.5-3(2.5)MG/3ML NEB HHN SCH ×2 (03:25→09:27)
[2021-08-02] MEDS: FUROSEMIDE 40MG TABLET PO SCH (06:06)
[2021-08-02] MEDS: METHYLPREDNISOLONE SOD SUCC 125 MG/2 ML VIAL IV SCH (06:06)
[2021-08-02 08:00] VITALS: BP 100/60
[2021-08-02] MEDS: CEFTRIAXONE 1,000 MG in DEXTROSE 5% WATER 50 ML IV SCH (08:23)
[2021-08-02] MEDS: METOPROLOL SUCCINATE 50MG ER TABLET PO SCH (08:23)
[2021-08-02] MEDS: ENOXAPARIN 60MG/0.6ML SYR SUBCUT SCH (08:24)
[2021-08-02] MEDS: ASPIRIN 325MG EC TABLET PO SCH (08:24)
[2021-08-02] MEDS: SPIRONOLACTONE 25MG TABLET PO SCH (08:25)
[2021-08-02] MEDS ORDERED: AZITHROMYCIN 500 MG TABLET PO SCH (09:00)
[2021-08-02] MEDS ORDERED: FAMOTIDINE 20MG TABLET PO SCH (09:00)
[2021-08-02 10:51] VITALS: BP 100/60
== END 2021-08-02 12:31 | disposition home or self-care (01) | DRG 133 ==
LOC: ER 05:30 → EDBEDREQSVC 10:47 → EDBEDREQ 10:47 → CANRESERV 16:21 → ENRESERV 16:21 → MICUSO 17:16 → 6WST 07-29 21:00
PROVIDERS: ADMIT Internal Medicine; ATTEND Internal Medicine
PROC: 5A1945Z Respiratory Ventilation, 24-96 Consecutive Hours (ICD-10-PCS; principal; 2021-07-28)
PROC: 5A12012 Performance of Cardiac Output, Single, Manual (ICD-10-PCS; 2021-07-28)
PROC: 0BH17EZ Insertion of Endotracheal Airway into Trachea, Via Natural or Artificial Opening (ICD-10-PCS; 2021-07-28)
PROC: 02HV33Z Insertion of Infusion Device into Superior Vena Cava, Percutaneous Approach (ICD-10-PCS; 2021-07-28)
PROC: B548ZZA Ultrasonography of Superior Vena Cava, Guidance (ICD-10-PCS; 2021-07-28)
DX: J96.01 Acute respiratory failure with hypoxia (principal); I46.9 Cardiac arrest, cause unspecified; I50.23 Acute on chronic systolic (congestive) heart failure; E43 Unspecified severe protein-calorie malnutrition; I26.93 Single subsegmental thrombotic pulmonary embolism without acute cor pulmonale; I27.29 Other secondary pulmonary hypertension; I95.9 Hypotension, unspecified; E83.51 Hypocalcemia; D63.8 Anemia in other chronic diseases classified elsewhere; I42.0 Dilated cardiomyopathy; J18.9 Pneumonia, unspecified organism; J96.02 Acute respiratory failure with hypercapnia; I11.0 Hypertensive heart disease with heart failure; D64.9 Anemia, unspecified; F17.210 Nicotine dependence, cigarettes, uncomplicated; F14.10 Cocaine abuse, uncomplicated; I34.0 Nonrheumatic mitral (valve) insufficiency; F15.10 Other stimulant abuse, uncomplicated; K21.9 Gastro-esophageal reflux disease without esophagitis; R00.1 Bradycardia, unspecified; J44.0 Chronic obstructive pulmonary disease with (acute) lower respiratory infection; Y90.0 Blood alcohol level of less than 20 mg/100 ml; I42.7 Cardiomyopathy due to drug and external agent; Z20.822 Contact with and (suspected) exposure to COVID-19; F10.10 Alcohol abuse, uncomplicated; F12.10 Cannabis abuse, uncomplicated; E87.6 Hypokalemia; I47.2 Ventricular tachycardia; Z59.00 Homelessness unspecified; Z91.14 Patient's other noncompliance with medication regimen; Z68.1 Body mass index [BMI] 19.9 or less, adult; Z79.899 Other long term (current) drug therapy; Z87.01 Personal history of pneumonia (recurrent); Z71.51 Drug abuse counseling and surveillance of drug abuser; Z71.6 Tobacco abuse counseling
CPT/HCPCS: 36415; 36600; 71045; 71275; 74174; 80048; 80053; 80061; 80305; 80320; 82375; 82550; 82553; 82607; 82746; 82805; 83036; 83540; 83550; 83615; 83735; 83880; 84100; 84145; 84439; 84443; 84484; 85025; 85379; 87426; 93005; 93970; 94002; 94003; 94640; 97162; 97166; 99285; C9113; J0330; J0456; J0696; J1250; J1650; J1940; J2060; J2250; J2930; J3010; J3475; J3490; J7040; J7050; J7060; Q9967; U0003; U0005; G0480

== ENCOUNTER 2021-09-19 02:22 | Emergency (ER) | payer MEDICAID ==
[~2021-09-19] VITALS: Ht 188 cm; Wt 86.3 kg
[2021-09-19] MEDS ORDERED: FURO-151 MT (05:09)
[2021-09-19 05:15] VITALS: BP 115/81
[2021-09-19] MEDS ORDERED: FUROSEMIDE IV SCH (05:15)
[2021-09-19] MEDS ORDERED: DEXTROSE 5% IV SCH (05:15)
[2021-09-19] MEDS ORDERED: WATER IV SCH (05:15)
== END 2021-09-19 05:24 | disposition home or self-care (01) ==
LOC: ER 02:22
DX: I11.0 Hypertensive heart disease with heart failure (principal); I50.9 Heart failure, unspecified; J45.909 Unspecified asthma, uncomplicated; F12.10 Cannabis abuse, uncomplicated; Z91.14 Patient's other noncompliance with medication regimen
CPT/HCPCS: 87426; 99283; J1940; J7060

== ENCOUNTER 2021-11-12 06:43 | Emergency (ER) | payer MEDICAID ==
[~2021-11-12] VITALS: Ht 172.7 cm; Wt 89.0 kg
[2021-11-12] MEDS ORDERED: FUROSEMIDE 40MG/4ML VIAL IV ONE (07:15)
[2021-11-12 07:28] VITALS: BP 107/74
[2021-11-12 08:57] LABS: CHLORIDE 110 mEq/L (98-107)
[2021-11-12 09:02] LABS: ETHANOL BLOOD < 10 mg/dL
[2021-11-12 09:12] LABS: BASOPHILS % 0.5 % (0.0-2.0); EOSINOPHILS % 2.9 % (0.0-5.0); HEMATOCRIT. 31.5 % (42.0-52.0); HEMOGLOBIN. 9.9 g/dL (14.0-18.0); LYMPHOCYTES % 13.1 % (20.0-50.0); MEAN CORPUSCULAR VOLUME 95.6 fL (80.0-94.0); MONOCYTES % 9.3 % (2.0-8.0); NEUTROPHILS % 74.2 % (40.0-76.0); PLATELET 202 x1000/uL (130-400); RED BLOOD CELL COUNT 3.29 mill/uL (4.7-6.1); RED CELL DISTRIBUTION WIDTH 16.8 % (11.6-14.6)
[2021-11-12] MEDS ORDERED: MORPHINE SULFATE 2 MG/ML CPJ (NOT FOR IM USE) IV PRN (17:30)
[2021-11-12] MEDS ORDERED: FUROSEMIDE 40MG/4ML VIAL IV SCH (17:30)
[2021-11-12] MEDS ORDERED: MAGNESIUM/ALUMINUM HYDROXIDE/SIMETHICONE 30ML UDC PO PRN (17:30)
[2021-11-12] MEDS ORDERED: ENOXAPARIN 40MG/0.4ML SYR SUBCUT SCH (17:30)
[2021-11-12] MEDS ORDERED: DOCUSATE SODIUM 100MG CAPSULE PO PRN (17:30)
[2021-11-12] MEDS ORDERED: ONDANSETRON HCL 4MG/2ML INJ IV PRN (17:30)
[2021-11-12] MEDS ORDERED: GUAIFENESIN 200MG/10ML SUGAR FREE UDC PO PRN (17:30)
[2021-11-12] MEDS ORDERED: CLONIDINE 0.1MG TABLET PO PRN (17:30)
[2021-11-12] MEDS ORDERED: NALOXONE HCL 0.4MG/ML VIAL IV PRN (17:30)
[2021-11-12] MEDS ORDERED: ACETAMINOPHEN 325MG TABLET PO PRN (17:30)
[2021-11-13] MEDS ORDERED: LISINOPRIL 10MG TABLET PO SCH (09:00)
== END 2021-11-12 20:30 | disposition left against medical advice (07) ==
LOC: ER 06:43 → CANBEDREQ 11-13 15:37
DX: I11.0 Hypertensive heart disease with heart failure (principal); I50.9 Heart failure, unspecified; F12.10 Cannabis abuse, uncomplicated; J45.909 Unspecified asthma, uncomplicated
CPT/HCPCS: 36415; 80053; 80305; 80320; 83880; 84484; 85025; 93005; 99285; G0480

== ENCOUNTER 2021-11-19 13:56 | Emergency (ER) | payer MEDICAID ==
[~2021-11-19] VITALS: Ht 188 cm; Wt 73.0 kg
[2021-11-19 17:00] LABS: BASOPHILS % 0.8 % (0.0-2.0); EOSINOPHILS % 2.6 % (0.0-5.0); HEMATOCRIT. 31.7 % (42.0-52.0); HEMOGLOBIN. 9.6 g/dL (14.0-18.0); LYMPHOCYTES % 16.7 % (20.0-50.0); MEAN CORPUSCULAR HEMOGLOBIN 28.6 pg (28.0-32.0); MEAN CORPUSCULAR VOLUME 94.2 fL (80.0-94.0); MEAN PLATELET VOLUME 9.2 fl (7.4-10.4); MONOCYTES % 7.1 % (2.0-8.0); NEUTROPHILS % 72.8 % (40.0-76.0); PLATELET 283 x1000/uL (130-400); RED BLOOD CELL COUNT 3.36 mill/uL (4.7-6.1); RED CELL DISTRIBUTION WIDTH 16.5 % (11.6-14.6)
[2021-11-19 17:06] LABS: CHLORIDE 110 mEq/L (98-107)
[2021-11-19 17:10] LABS: ETHANOL BLOOD < 10 mg/dL
[2021-11-19] MEDS ORDERED: FUROSEMIDE 40MG TABLET PO ONE (23:45)
[2021-11-19] MEDS ORDERED: FURO-151 MT (23:52)
[2021-11-19] MEDS ORDERED: COR3 MT (23:52)
[2021-11-19] MEDS ORDERED: ASPI-1497 MT (23:52)
[2021-11-19] MEDS ORDERED: LOSA25TA26 MT (23:52)
[2021-11-19] MEDS ORDERED: SPIR25TA MT (23:52)
[2021-11-20 00:40] VITALS: BP 160/60
== END 2021-11-20 01:08 | disposition home or self-care (01) ==
LOC: ER 13:56
DX: R60.0 Localized edema (principal); I11.0 Hypertensive heart disease with heart failure; I50.9 Heart failure, unspecified; F12.10 Cannabis abuse, uncomplicated; Z91.14 Patient's other noncompliance with medication regimen
CPT/HCPCS: 36415; 71045; 80053; 80320; 83880; 84484; 85025; 93005; 99285; G0480

== ENCOUNTER 2022-02-25 08:26 | Emergency (ER) | payer MEDICAID ==
[~2022-02-25] VITALS: Ht 188 cm; Wt 82.0 kg
[~2022-02-25 08:26] MED LIST changes: +ASPI-1497 MT; +COR3 MT; +SPIR25TA MT
[2022-02-25 09:24] LABS: BASOPHILS % 0.5 % (0.0-2.0); HEMOGLOBIN. 8.9 g/dL (14.0-18.0); LYMPHOCYTES % 13.9 % (20.0-50.0); MEAN CORPUSCULAR HEMOGLOBIN 26.6 pg (28.0-32.0); MEAN PLATELET VOLUME 9.1 fl (7.4-10.4); MONOCYTES % 10.5 % (2.0-8.0); NEUTROPHILS % 73.1 % (40.0-76.0); PLATELET 218 x1000/uL (130-400); RED BLOOD CELL COUNT 3.34 mill/uL (4.7-6.1); RED CELL DISTRIBUTION WIDTH 19.2 % (11.6-14.6)
[2022-02-25 09:29] LABS: CHLORIDE 110 mEq/L (98-107)
[2022-02-25] MEDS ORDERED: FUROSEMIDE 40MG/4ML VIAL IVP SCH (11:15)
[2022-02-25] MEDS ORDERED: LOSA25TA26 MT (12:07)
[2022-02-25] MEDS ORDERED: CARV3.1242 MT (12:07)
[2022-02-25] MEDS ORDERED: FURO-151 MT (12:07)
[2022-02-25] MEDS ORDERED: ASPI-1497 MT (12:07)
[2022-02-25] MEDS ORDERED: CARVEDILOL 3.125 MG TABLET PO ONE (13:15)
[2022-02-25] MEDS ORDERED: ASPIRIN 81MG TABLET PO ONE (13:15)
[2022-02-25] MEDS ORDERED: LOSARTAN POTASSIUM 25 MG TABLET PO ONE (13:15)
[2022-02-25 16:11] VITALS: BP 103/72
== END 2022-02-25 16:14 | disposition home or self-care (01) ==
LOC: ER 08:26
DX: I11.0 Hypertensive heart disease with heart failure (principal); I50.9 Heart failure, unspecified; F12.10 Cannabis abuse, uncomplicated; Z76.0 Encounter for issue of repeat prescription
CPT/HCPCS: 36415; 71045; 80053; 83880; 84484; 85025; 93005; 96374; 99285; J1940

== ENCOUNTER 2022-03-03 11:09 | Emergency (ER) | payer MEDICAID ==
[~2022-03-03] VITALS: Ht 188 cm; Wt 82.0 kg
[2022-03-03 12:43] LABS: BASOPHILS % 0.6 % (0.0-2.0); EOSINOPHILS % 1.9 % (0.0-5.0); HEMATOCRIT. 30.1 % (42.0-52.0); HEMOGLOBIN. 9.3 g/dL (14.0-18.0); LYMPHOCYTES % 14.9 % (20.0-50.0); MEAN CORPUSCULAR HEMOGLOBIN 26.9 pg (28.0-32.0); MEAN CORPUSCULAR VOLUME 87.6 fL (80.0-94.0); MEAN PLATELET VOLUME 9.4 fl (7.4-10.4); MONOCYTES % 10.6 % (2.0-8.0); PLATELET 229 x1000/uL (130-400); RED BLOOD CELL COUNT 3.44 mill/uL (4.7-6.1); RED CELL DISTRIBUTION WIDTH 19.6 % (11.6-14.6)
[2022-03-03 12:49] LABS: CHLORIDE 111 mEq/L (98-107)
[2022-03-03] MEDS ORDERED: FUROSEMIDE 40MG/4ML VIAL IV ONE (16:45)
[2022-03-03] MEDS ORDERED: ASPIRIN 81MG TABLET PO ONE (17:45)
[2022-03-03 20:05] VITALS: BP 108/67
[2022-03-03] MEDS ORDERED: IOHEXOL-350 100 ML BOTTLE ONE (22:43)
== END 2022-03-03 20:01 | disposition home or self-care (01) ==
LOC: ER 11:09 → CANBEDREQ 23:54
DX: I11.0 Hypertensive heart disease with heart failure (principal); I50.9 Heart failure, unspecified; J20.9 Acute bronchitis, unspecified; E11.9 Type 2 diabetes mellitus without complications; D64.9 Anemia, unspecified; E46 Unspecified protein-calorie malnutrition; Z68.23 Body mass index [BMI] 23.0-23.9, adult; Z86.718 Personal history of other venous thrombosis and embolism; Z79.82 Long term (current) use of aspirin; Z79.899 Other long term (current) drug therapy
CPT/HCPCS: 36415; 71045; 71275; 80053; 83690; 83880; 84484; 85025; 85379; 93005; 96374; 99285; J1940; Q9967

== ENCOUNTER 2022-03-12 00:01 | Inpatient (IN) | payer MEDICAID ==
[2022-03-12] VITALS (7 sets, daily range): BP systolic 92–112; BP diastolic 46–74
[~2022-03-12] VITALS: Ht 188 cm; Wt 68.0 kg
[2022-03-12] MEDS ORDERED: NICARDIPINE 100 MG in SODIUM CHLORIDE 0.9% 60 ML IV STA (01:12)
[2022-03-12] MEDS ORDERED: FUROSEMIDE 40MG/4ML VIAL IV ONE (01:15)
[2022-03-12 01:23] LABS: BASOPHILS % 0.3 % (0.0-2.0); EOSINOPHILS % 2.4 % (0.0-5.0); HEMOGLOBIN. 9.1 g/dL (14.0-18.0); LYMPHOCYTES % 13.5 % (20.0-50.0); MEAN CORPUSCULAR HEMOGLOBIN 26.8 pg (28.0-32.0); MEAN CORPUSCULAR VOLUME 88.1 fL (80.0-94.0); MEAN PLATELET VOLUME 8.7 fl (7.4-10.4); MONOCYTES % 9.4 % (2.0-8.0); NEUTROPHILS % 74.4 % (40.0-76.0); PLATELET 291 x1000/uL (130-400); RED CELL DISTRIBUTION WIDTH 18.8 % (11.6-14.6)
[2022-03-12 01:30] LABS: CHLORIDE 108 mEq/L (98-107)
[2022-03-12 01:40] LABS: ETHANOL BLOOD < 10 mg/dL
[2022-03-12] MEDS ORDERED: NICARDIPINE 100 MG in SODIUM CHLORIDE 0.9% 60 ML IV SCH (02:00)
[2022-03-12] MEDS ORDERED: IPRATROPIUM/ALBUTEROL 0.5-3(2.5)MG/3ML NEB HHN PRN (04:15)
[2022-03-12] MEDS ORDERED: LORAZEPAM 0.5MG TABLET PO PRN (04:15)
[2022-03-12] MEDS ORDERED: ONDANSETRON HCL 4MG/2ML INJ IV PRN (04:15)
[2022-03-12] MEDS ORDERED: HYDROCODONE/ACETAMINOPHEN 5/325MG TABLET PO PRN (04:15)
[2022-03-12] MEDS ORDERED: CLONIDINE 0.1MG TABLET PO PRN (04:15)
[2022-03-12] MEDS ORDERED: MAGNESIUM/ALUMINUM HYDROXIDE/SIMETHICONE 30ML UDC PO PRN (04:15)
[2022-03-12] MEDS ORDERED: ACETAMINOPHEN 325MG TABLET PO PRN ×2 (04:15)
[2022-03-12] MEDS ORDERED: DOCUSATE SODIUM 100MG CAPSULE PO PRN (04:15)
[2022-03-12] MEDS ORDERED: NALOXONE HCL 0.4 MG/ML 1ML VIAL IV PRN (05:00)
[2022-03-12 06:11] LABS: BASOPHILS % 0.7 % (0.0-2.0); EOSINOPHILS % 1.8 % (0.0-5.0); HEMATOCRIT. 27.1 % (42.0-52.0); HEMOGLOBIN. 8.5 g/dL (14.0-18.0); LYMPHOCYTES % 15.4 % (20.0-50.0); MEAN CORPUSCULAR VOLUME 85.9 fL (80.0-94.0); MEAN PLATELET VOLUME 8.7 fl (7.4-10.4); MONOCYTES % 8.1 % (2.0-8.0); PLATELET 278 x1000/uL (130-400); RED BLOOD CELL COUNT 3.16 mill/uL (4.7-6.1); RED CELL DISTRIBUTION WIDTH 18.8 % (11.6-14.6)
[2022-03-12 06:20] LABS: CHLORIDE 109 mEq/L (98-107)
[2022-03-12 06:36] LABS: CREATINE KINASE 285 IU/L (39-308); HDL CHOLESTEROL 38 mg/dL (40-59); LDL CHOLESTEROL 77 mg/dL (5-100)
[2022-03-12] MEDS ORDERED: POTASSIUM CHLORIDE 20MEQ TABLET SR PO NR (11:00)
[2022-03-12] MEDS ORDERED: FUROSEMIDE 40MG/4ML VIAL IVP SCH (11:00)
[2022-03-12] MEDS: LOSARTAN POTASSIUM 25 MG TABLET PO SCH (11:42)
[2022-03-12] MEDS: FUROSEMIDE 40MG/4ML VIAL IVP SCH ×2 (14:15→20:10)
[2022-03-12 18:25] LABS: CLARITY URINE CLEAR (CLEAR); COLOR URINE YELLOW (YELLOW); KETONES URINE NEGATIVE (NEGATIVE); LEUKOCYTE ESTERASE URINE NEGATIVE (NEGATIVE); NITRITE URINE NEGATIVE (NEGATIVE); OCCULT BLOOD URINE NEGATIVE (NEGATIVE); PH URINE 7.5 (4.5-8.0); PROTEIN URINE NEGATIVE (NEGATIVE); SPECIFIC GRAVITY URINE 1.006 (1.005-1.030)
[2022-03-12 18:39] LABS: *AMPHETAMINES SCREEN URINE NEGATIVE (NEGATIVE); *BARBITURATES SCREEN URINE NEGATIVE (NEGATIVE); *BENZODIAZEPINES SCREEN URINE NEGATIVE (NEGATIVE); *COCAINE SCREEN URINE NEGATIVE (NEGATIVE); CANNABINOID URINE SCREEN PRESUMTIVE POSITIVE (NEGATIVE); METHADONE URINE SCREEN NEGATIVE (NEGATIVE); OPIATES URINE SCREEN NEGATIVE (NEGATIVE); PHENCYCLIDINE URINE SCREEN NEGATIVE (NEGATIVE)
[2022-03-12] MEDS: GUAIFENESIN 200MG/10ML SUGAR FREE UDC PO PRN (22:46)
[2022-03-13 04:00] VITALS: BP 92/60
[2022-03-13 07:02] LABS: BASOPHILS % 0.6 % (0.0-2.0); EOSINOPHILS % 2.4 % (0.0-5.0); HEMATOCRIT. 26.3 % (42.0-52.0); HEMOGLOBIN. 8.3 g/dL (14.0-18.0); LYMPHOCYTES % 15.3 % (20.0-50.0); MEAN CORPUSCULAR HEMOGLOBIN 26.7 pg (28.0-32.0); MEAN CORPUSCULAR VOLUME 84.3 fL (80.0-94.0); MEAN PLATELET VOLUME 8.6 fl (7.4-10.4); MONOCYTES % 9.3 % (2.0-8.0); NEUTROPHILS % 72.4 % (40.0-76.0); PLATELET 257 x1000/uL (130-400); RED BLOOD CELL COUNT 3.12 mill/uL (4.7-6.1); RED CELL DISTRIBUTION WIDTH 18.9 % (11.6-14.6)
[2022-03-13 08:06] LABS: CHLORIDE 108 mEq/L (98-107)
[2022-03-13 08:29] VITALS: BP_SYST 104; BP_SYST 136; BP_DIAS 68; BP_DIAS 84
[2022-03-13] MEDS: LOSARTAN POTASSIUM 25 MG TABLET PO SCH (09:00)
[2022-03-13] MEDS: CARVEDILOL 3.125 MG TABLET PO SCH (09:17)
[2022-03-13] MEDS: FUROSEMIDE 40MG/4ML VIAL IVP SCH ×2 (09:18→16:59)
[2022-03-13 12:26] VITALS: BP 90/58
[2022-03-13 16:25] VITALS: BP 98/68
[2022-03-13 20:00] VITALS: BP 101/66
[2022-03-14] VITALS: BP 94/64
[2022-03-14 03:45] VITALS: BP 104/64
[2022-03-14 07:19] LABS: BASOPHILS % 0.6 % (0.0-2.0); EOSINOPHILS % 2.9 % (0.0-5.0); HEMATOCRIT. 27.8 % (42.0-52.0); HEMOGLOBIN. 8.4 g/dL (14.0-18.0); LYMPHOCYTES % 18.1 % (20.0-50.0); MEAN CORPUSCULAR HEMOGLOBIN 25.7 pg (28.0-32.0); MEAN CORPUSCULAR VOLUME 84.8 fL (80.0-94.0); MONOCYTES % 9.4 % (2.0-8.0); PLATELET 244 x1000/uL (130-400); RED BLOOD CELL COUNT 3.28 mill/uL (4.7-6.1); RED CELL DISTRIBUTION WIDTH 19.8 % (11.6-14.6)
[2022-03-14 07:31] LABS: CHLORIDE 105 mEq/L (98-107)
[2022-03-14 08:00] VITALS: BP 100/60
[2022-03-14] MEDS: LOSARTAN POTASSIUM 25 MG TABLET PO SCH (09:00)
[2022-03-14] MEDS: CARVEDILOL 3.125 MG TABLET PO SCH ×2 (09:00→21:00)
[2022-03-14] MEDS: FUROSEMIDE 40MG/4ML VIAL IVP SCH ×2 (09:52→17:00)
[2022-03-14 12:00] VITALS: BP 114/61
[2022-03-14] MEDS ORDERED: ENOXAPARIN 40MG/0.4ML SYR SUBCUT SCH (16:15)
[2022-03-14 16:38] VITALS: BP 94/60
[2022-03-14 19:48] VITALS: BP 90/48
[2022-03-14] MEDS: GUAIFENESIN 200MG/10ML SUGAR FREE UDC PO PRN (23:32)
[2022-03-15] VITALS: BP 93/62
[2022-03-15 03:35] VITALS: BP 101/57
[2022-03-15 08:00] VITALS: BP 95/46
[2022-03-15] MEDS: CARVEDILOL 3.125 MG TABLET PO SCH (09:00)
[2022-03-15] MEDS: FUROSEMIDE 40MG/4ML VIAL IVP SCH (09:47)
[2022-03-15] MEDS ORDERED: FURO40TA5 PO (11:55)
[2022-03-15] MEDS ORDERED: COR3 PO (11:55)
[2022-03-15] MEDS ORDERED: LOSA25TA3 PO (11:55)
[2022-03-15 12:55] VITALS: BP 97/58
== END 2022-03-15 16:56 | disposition home or self-care (01) | DRG 194 ==
LOC: ER 00:01 → 6WST 02:24 → ENRESERV 02:52
PROVIDERS: ADMIT Family Medicine Adult Medicine; ATTEND Family Medicine Adult Medicine
DX: I11.0 Hypertensive heart disease with heart failure (principal); J96.00 Acute respiratory failure, unspecified whether with hypoxia or hypercapnia; E44.0 Moderate protein-calorie malnutrition; I27.20 Pulmonary hypertension, unspecified; I50.23 Acute on chronic systolic (congestive) heart failure; I42.0 Dilated cardiomyopathy; F14.10 Cocaine abuse, uncomplicated; E87.6 Hypokalemia; F10.10 Alcohol abuse, uncomplicated; D64.9 Anemia, unspecified; F17.210 Nicotine dependence, cigarettes, uncomplicated; I08.1 Rheumatic disorders of both mitral and tricuspid valves; E78.5 Hyperlipidemia, unspecified; Z60.2 Problems related to living alone; Z82.49 Family history of ischemic heart disease and other diseases of the circulatory system; Z83.3 Family history of diabetes mellitus; Z91.14 Patient's other noncompliance with medication regimen; Z91.19 Patient's noncompliance with other medical treatment and regimen; Z68.1 Body mass index [BMI] 19.9 or less, adult; Z79.899 Other long term (current) drug therapy; Z79.82 Long term (current) use of aspirin
CPT/HCPCS: 36415; 71045; 80048; 80053; 80061; 80305; 80320; 81003; 82550; 83735; 83880; 84443; 84484; 85025; 93005; 93970; 99291; J1650; J1940; J3490; J7050; G0480

== ENCOUNTER 2022-04-08 23:40 | Emergency (ER) | payer MEDICAID ==
[~2022-04-08] VITALS: Ht 188 cm; Wt 77.2 kg
[~2022-04-08 23:40] MED LIST changes: -CARV3.1242 MT; -COR3 MT; +COR3 PO; -FURO-151 MT; +FURO40TA5 PO; -LOSA25TA26 MT; +LOSA25TA3 PO; +POTA-205 MT; -POTA20TA82 MT
[2022-04-09] MEDS ORDERED: FUROSEMIDE 40MG/4ML VIAL IV ONE (01:00)
[2022-04-09] MEDS ORDERED: ASPIRIN 81MG TABLET PO ONE (01:00)
[2022-04-09] MEDS ORDERED: NITROGLYCERIN 0.4MG TABLET SL SL PRN (01:00)
[2022-04-09 01:25] LABS: HEMATOCRIT. 28.8 % (42.0-52.0); HEMOGLOBIN. 8.8 g/dL (14.0-18.0); MEAN CORPUSCULAR HEMOGLOBIN 26.1 pg (28.0-32.0); MEAN CORPUSCULAR VOLUME 85.2 fL (80.0-94.0); MEAN PLATELET VOLUME 8.3 fl (7.4-10.4); PLATELET 257 x1000/uL (130-400); RED BLOOD CELL COUNT 3.38 mill/uL (4.7-6.1); RED CELL DISTRIBUTION WIDTH 19.1 % (11.6-14.6)
[2022-04-09 01:29] LABS: CHLORIDE 106 mEq/L (98-107)
[2022-04-09 01:47] LABS: PLATELET ESTIMATE NORMAL
[2022-04-09 03:15] VITALS: BP 96/62
== END 2022-04-09 05:20 | disposition home or self-care (01) ==
LOC: ER 23:40
DX: I11.0 Hypertensive heart disease with heart failure (principal); I50.9 Heart failure, unspecified; F12.10 Cannabis abuse, uncomplicated; Z86.718 Personal history of other venous thrombosis and embolism; Z79.01 Long term (current) use of anticoagulants
CPT/HCPCS: 36415; 71045; 80053; 83880; 84484; 85025; 93005; 96374; 99285; J1940

== ENCOUNTER 2022-04-15 21:04 | Inpatient (IN) | payer MEDICAID ==
[~2022-04-15] VITALS: Ht 188 cm; Wt 69.9 kg
[2022-04-15] MEDS ORDERED: FUROSEMIDE 40MG/4ML VIAL IV ONE (23:15)
[2022-04-15 23:25] LABS: BASOPHILS % 0.5 % (0.0-2.0); EOSINOPHILS % 1.1 % (0.0-5.0); HEMATOCRIT. 28.2 % (42.0-52.0); HEMOGLOBIN. 8.6 g/dL (14.0-18.0); LYMPHOCYTES % 12.4 % (20.0-50.0); MEAN CORPUSCULAR HEMOGLOBIN 25.7 pg (28.0-32.0); MEAN CORPUSCULAR VOLUME 84.1 fL (80.0-94.0); MEAN PLATELET VOLUME 8.3 fl (7.4-10.4); MONOCYTES % 8.1 % (2.0-8.0); NEUTROPHILS % 77.9 % (40.0-76.0); PLATELET 260 x1000/uL (130-400); RED BLOOD CELL COUNT 3.35 mill/uL (4.7-6.1); RED CELL DISTRIBUTION WIDTH 19.3 % (11.6-14.6)
[2022-04-15 23:36] LABS: CHLORIDE 109 mEq/L (98-107)
[2022-04-16 11:27] VITALS: BP 124/79
[2022-04-16 12:00] VITALS: BP 115/81
[2022-04-16] MEDS ORDERED: ONDANSETRON HCL 4MG/2ML INJ IV PRN (12:15)
[2022-04-16] MEDS: LOSARTAN POTASSIUM 25 MG TABLET PO SCH (12:30)
[2022-04-16] MEDS: CARVEDILOL 3.125 MG TABLET PO SCH ×2 (12:30→21:13)
[2022-04-16] MEDS: FUROSEMIDE 40MG/4ML VIAL IVP SCH ×2 (13:22→18:11)
[2022-04-16] MEDS ORDERED: PNEUMOCOCCAL 23-VAL P-SAC VAC 0.5 ML IM ONE (14:45)
[2022-04-16 16:00] VITALS: BP 109/78
[2022-04-16 20:00] VITALS: BP 117/78
[2022-04-16] MEDS: ACETAMINOPHEN 325MG TABLET PO PRN ×2 (21:24→21:27)
[2022-04-17] VITALS (9 sets, daily range): BP systolic 104–122; BP diastolic 54–83
[2022-04-17] MEDS: FUROSEMIDE 40MG/4ML VIAL IVP SCH ×3 (06:42→16:08)
[2022-04-17] MEDS: CARVEDILOL 3.125 MG TABLET PO SCH ×2 (08:23→21:07)
[2022-04-17] MEDS: LOSARTAN POTASSIUM 25 MG TABLET PO SCH (08:24)
[2022-04-17] MEDS ORDERED: GUAIFENESIN-DM 200MG-20MG/10ML UDC PO PRN (22:15)
[2022-04-18] VITALS: BP_SYST 105; BP_SYST 115; BP_DIAS 71; BP_DIAS 76
[2022-04-18 04:00] VITALS: BP 115/71
[2022-04-18 08:00] VITALS: BP 111/75
[2022-04-18] MEDS: CARVEDILOL 3.125 MG TABLET PO SCH (08:40)
[2022-04-18] MEDS: FUROSEMIDE 40MG/4ML VIAL IVP SCH ×2 (08:40→16:37)
[2022-04-18] MEDS: LOSARTAN POTASSIUM 25 MG TABLET PO SCH (08:40)
[2022-04-18 12:00] VITALS: BP 101/65
[2022-04-18] MEDS ORDERED: LOSA25TA3 PO (12:09)
[2022-04-18] MEDS ORDERED: ASPI-1497 MT (12:09)
[2022-04-18] MEDS ORDERED: POTA-205 MT (12:09)
[2022-04-18] MEDS ORDERED: SPIR25TA MT (12:09)
[2022-04-18] MEDS ORDERED: FURO40TA5 PO (12:09)
[2022-04-18] MEDS ORDERED: COR3 PO (12:09)
[2022-04-18 16:00] VITALS: BP 104/68
[2022-04-18 17:44] VITALS: BP 104/68
== END 2022-04-18 18:18 | disposition home or self-care (01) | DRG 194 ==
LOC: ER 21:04 → 8WST 04-16 05:17 → ENRESERV 04-16 07:16
PROVIDERS: ADMIT Internal Medicine; ATTEND Internal Medicine
DX: I11.0 Hypertensive heart disease with heart failure (principal); J96.00 Acute respiratory failure, unspecified whether with hypoxia or hypercapnia; E44.0 Moderate protein-calorie malnutrition; I42.9 Cardiomyopathy, unspecified; E87.8 Other disorders of electrolyte and fluid balance, not elsewhere classified; D50.9 Iron deficiency anemia, unspecified; F10.10 Alcohol abuse, uncomplicated; F12.10 Cannabis abuse, uncomplicated; F17.210 Nicotine dependence, cigarettes, uncomplicated; Z20.822 Contact with and (suspected) exposure to COVID-19; R74.01 Elevation of levels of liver transaminase levels; I50.23 Acute on chronic systolic (congestive) heart failure; Z91.19 Patient's noncompliance with other medical treatment and regimen; Z59.00 Homelessness unspecified; Z82.49 Family history of ischemic heart disease and other diseases of the circulatory system; Z83.3 Family history of diabetes mellitus; Z91.14 Patient's other noncompliance with medication regimen; Z28.310 Unvaccinated for COVID-19; Z68.1 Body mass index [BMI] 19.9 or less, adult; Z79.82 Long term (current) use of aspirin; Z79.899 Other long term (current) drug therapy; Z86.718 Personal history of other venous thrombosis and embolism; Z71.6 Tobacco abuse counseling
CPT/HCPCS: 36415; 71045; 80053; 83880; 84484; 85025; 87426; 90732; 93005; 99285; J1940

== ENCOUNTER 2022-05-31 01:12 | Inpatient (IN) | payer MEDICAID ==
[~2022-05-31] VITALS: Ht 188 cm; Wt 74.8 kg
[2022-05-31 05:55] LABS: BASOPHILS % 0.8 % (0.0-2.0); EOSINOPHILS % 3.5 % (0.0-5.0); HEMATOCRIT. 26.7 % (42.0-52.0); HEMOGLOBIN. 8.1 g/dL (14.0-18.0); LYMPHOCYTES % 16.1 % (20.0-50.0); MEAN CORPUSCULAR HEMOGLOBIN 25.5 pg (28.0-32.0); MEAN CORPUSCULAR VOLUME 83.7 fL (80.0-94.0); MEAN PLATELET VOLUME 8.5 fl (7.4-10.4); MONOCYTES % 9.9 % (2.0-8.0); NEUTROPHILS % 69.7 % (40.0-76.0); PLATELET 238 x1000/uL (130-400); RED BLOOD CELL COUNT 3.18 mill/uL (4.7-6.1); RED CELL DISTRIBUTION WIDTH 19.1 % (11.6-14.6)
[2022-05-31 05:56] LABS: CHLORIDE 104 mEq/L (98-107)
[2022-05-31] MEDS ORDERED: FUROSEMIDE 40MG/4ML VIAL IVP ONE (09:00)
[2022-05-31] MEDS ORDERED: FUROSEMIDE 40MG/4ML VIAL IVP NR (10:45)
[2022-05-31 16:00] VITALS: BP 92/72
[2022-05-31 16:51] VITALS: BP 92/72
[2022-05-31] MEDS ORDERED: ONDANSETRON HCL 4MG/2ML INJ IV PRN (17:45)
[2022-05-31] MEDS ORDERED: NALOXONE HCL 0.4MG/ML VIAL IV PRN (17:45)
[2022-05-31] MEDS ORDERED: IPRATROPIUM/ALBUTEROL 0.5-3(2.5)MG/3ML NEB HHN PRN (17:45)
[2022-05-31] MEDS ORDERED: MORPHINE SULFATE 2 MG/ML CPJ (NOT FOR IM USE) IV PRN (17:45)
[2022-05-31] MEDS ORDERED: DIPHENHYDRAMINE 50MG/ML VIAL IV PRN (17:45)
[2022-05-31] MEDS ORDERED: ACETAMINOPHEN 325MG TABLET PO PRN (17:45)
[2022-05-31] MEDS ORDERED: CLONIDINE 0.1MG TABLET PO PRN (17:45)
[2022-05-31 20:00] VITALS: BP 107/68
[2022-06-01] VITALS: BP 102/78
[2022-06-01 04:00] VITALS: BP 99/70
[2022-06-01 08:00] VITALS: BP 95/69
[2022-06-01 08:34] LABS: BASOPHILS % 1.1 % (0.0-2.0); EOSINOPHILS % 3.6 % (0.0-5.0); HEMATOCRIT. 26.2 % (42.0-52.0); HEMOGLOBIN. 8.1 g/dL (14.0-18.0); MEAN CORPUSCULAR VOLUME 84.5 fL (80.0-94.0); MEAN PLATELET VOLUME 9.1 fl (7.4-10.4); MONOCYTES % 9.1 % (2.0-8.0); NEUTROPHILS % 68.2 % (40.0-76.0); PLATELET 235 x1000/uL (130-400); RED CELL DISTRIBUTION WIDTH 18.8 % (11.6-14.6)
[2022-06-01 08:52] LABS: CHLORIDE 106 mEq/L (98-107)
[2022-06-01 09:47] LABS: PHOSPHORUS 3.5 mg/dL (2.5-4.9)
[2022-06-01] MEDS: LOSARTAN POTASSIUM 50 MG TABLET PO SCH (09:58)
[2022-06-01] MEDS: ASPIRIN 81MG TABLET PO SCH (10:13)
[2022-06-01] MEDS: POTASSIUM CHLORIDE 20MEQ TABLET SR PO SCH (10:13)
[2022-06-01] MEDS: FUROSEMIDE 40MG/4ML VIAL IVP SCH ×2 (10:13→16:35)
[2022-06-01] MEDS: ENOXAPARIN 40MG/0.4ML SYR SUBCUT SCH (10:14)
[2022-06-01 12:00] VITALS: BP 114/59
[2022-06-01 12:25] LABS: *AMPHETAMINES SCREEN URINE NEGATIVE (NEGATIVE); *BARBITURATES SCREEN URINE NEGATIVE (NEGATIVE); *BENZODIAZEPINES SCREEN URINE NEGATIVE (NEGATIVE); *COCAINE SCREEN URINE NEGATIVE (NEGATIVE); CANNABINOID URINE SCREEN PRESUMTIVE POSITIVE (NEGATIVE); METHADONE URINE SCREEN NEGATIVE (NEGATIVE); OPIATES URINE SCREEN NEGATIVE (NEGATIVE); PHENCYCLIDINE URINE SCREEN NEGATIVE (NEGATIVE)
[2022-06-01 16:15] VITALS: BP 105/66
[2022-06-01 20:00] VITALS: BP 100/63
[2022-06-01] MEDS: ATORVASTATIN CALCIUM 20MG TABLET PO SCH (20:16)
[2022-06-02] VITALS: BP 100/77
[2022-06-02 04:00] VITALS: BP 95/71
[2022-06-02 06:34] LABS: BASOPHILS % 0.5 % (0.0-2.0); EOSINOPHILS % 3.5 % (0.0-5.0); HEMATOCRIT. 26.7 % (42.0-52.0); HEMOGLOBIN. 8.2 g/dL (14.0-18.0); LYMPHOCYTES % 15.4 % (20.0-50.0); MEAN CORPUSCULAR HEMOGLOBIN 25.8 pg (28.0-32.0); MEAN CORPUSCULAR VOLUME 84.1 fL (80.0-94.0); MONOCYTES % 7.8 % (2.0-8.0); NEUTROPHILS % 72.8 % (40.0-76.0); PLATELET 220 x1000/uL (130-400); RED BLOOD CELL COUNT 3.17 mill/uL (4.7-6.1); RED CELL DISTRIBUTION WIDTH 19.3 % (11.6-14.6)
[2022-06-02 06:59] LABS: CHLORIDE 106 mEq/L (98-107)
[2022-06-02] MEDS: FUROSEMIDE 40MG/4ML VIAL IVP SCH ×2 (07:15→17:36)
[2022-06-02 07:55] VITALS: BP 89/66
[2022-06-02] MEDS: LOSARTAN POTASSIUM 50 MG TABLET PO SCH (08:22)
[2022-06-02] MEDS: POTASSIUM CHLORIDE 20MEQ TABLET SR PO SCH (08:23)
[2022-06-02] MEDS: ENOXAPARIN 40MG/0.4ML SYR SUBCUT SCH (08:26)
[2022-06-02] MEDS: ASPIRIN 81MG TABLET PO SCH (08:26)
[2022-06-02 12:30] VITALS: BP 115/71
[2022-06-02] MEDS: SPIRONOLACTONE 25MG TABLET PO SCH (13:22)
[2022-06-02 16:30] VITALS: BP 112/83
[2022-06-02 20:00] VITALS: BP 109/68
[2022-06-02] MEDS: ATORVASTATIN CALCIUM 20MG TABLET PO SCH (21:00)
[2022-06-03] VITALS: BP 102/67
[2022-06-03 04:54] VITALS: BP 103/68
[2022-06-03] MEDS: FUROSEMIDE 40MG/4ML VIAL IVP SCH ×2 (06:15→17:15)
[2022-06-03 07:10] LABS: BASOPHILS % 0.9 % (0.0-2.0); EOSINOPHILS % 4.4 % (0.0-5.0); HEMATOCRIT. 27.6 % (42.0-52.0); HEMOGLOBIN. 8.5 g/dL (14.0-18.0); LYMPHOCYTES % 15.8 % (20.0-50.0); MEAN CORPUSCULAR VOLUME 84.7 fL (80.0-94.0); MONOCYTES % 7.6 % (2.0-8.0); NEUTROPHILS % 71.3 % (40.0-76.0); PLATELET 218 x1000/uL (130-400); RED BLOOD CELL COUNT 3.26 mill/uL (4.7-6.1)
[2022-06-03 08:00] VITALS: BP 88/54
[2022-06-03] MEDS: SPIRONOLACTONE 25MG TABLET PO SCH (09:00)
[2022-06-03] MEDS: LOSARTAN POTASSIUM 50 MG TABLET PO SCH (09:00)
[2022-06-03 09:17] LABS: CHLORIDE 107 mEq/L (98-107)
[2022-06-03] MEDS: POTASSIUM CHLORIDE 20MEQ TABLET SR PO SCH (09:27)
[2022-06-03] MEDS: ASPIRIN 81MG TABLET PO SCH (09:28)
[2022-06-03] MEDS: ENOXAPARIN 40MG/0.4ML SYR SUBCUT SCH (09:29)
[2022-06-03 12:00] VITALS: BP 97/58
[2022-06-03 16:00] VITALS: BP 93/60
[2022-06-03 20:00] VITALS: BP 98/66
[2022-06-03] MEDS: ATORVASTATIN CALCIUM 20MG TABLET PO SCH (21:26)
[2022-06-04] VITALS: BP 106/73
[2022-06-04 03:33] VITALS: BP 116/57
[2022-06-04] MEDS: FUROSEMIDE 40MG/4ML VIAL IVP SCH ×2 (07:15→17:15)
[2022-06-04 08:00] VITALS: BP 91/62
[2022-06-04] MEDS: ASPIRIN 81MG TABLET PO SCH (08:06)
[2022-06-04] MEDS: SPIRONOLACTONE 25MG TABLET PO SCH (08:06)
[2022-06-04] MEDS: POTASSIUM CHLORIDE 20MEQ TABLET SR PO SCH (08:07)
[2022-06-04] MEDS: ENOXAPARIN 40MG/0.4ML SYR SUBCUT SCH (08:07)
[2022-06-04] MEDS: LOSARTAN POTASSIUM 50 MG TABLET PO SCH (08:08)
[2022-06-04 11:33] VITALS: BP 83/49
[2022-06-04 11:45] LABS: BASOPHILS % 0.7 % (0.0-2.0); EOSINOPHILS % 4.1 % (0.0-5.0); HEMATOCRIT. 27.8 % (42.0-52.0); HEMOGLOBIN. 8.5 g/dL (14.0-18.0); MEAN CORPUSCULAR HEMOGLOBIN 25.8 pg (28.0-32.0); MEAN CORPUSCULAR VOLUME 84.6 fL (80.0-94.0); MEAN PLATELET VOLUME 9.1 fl (7.4-10.4); MONOCYTES % 9.5 % (2.0-8.0); NEUTROPHILS % 74.7 % (40.0-76.0); PLATELET 215 x1000/uL (130-400); RED BLOOD CELL COUNT 3.29 mill/uL (4.7-6.1); RED CELL DISTRIBUTION WIDTH 19.2 % (11.6-14.6)
[2022-06-04 12:02] LABS: CHLORIDE 109 mEq/L (98-107)
[2022-06-04] MEDS ORDERED: ATOR20TA PO (15:11)
[2022-06-04] MEDS ORDERED: LOSA50TA3 PO (15:11)
[2022-06-04 15:24] VITALS: BP 93/61
[2022-06-04] MEDS ORDERED: POTA-205 MT (16:58)
[2022-06-04] MEDS ORDERED: SPIR25TA6 MT (16:58)
[2022-06-04] MEDS ORDERED: FURO40TA5 MT (16:58)
[2022-06-04] MEDS ORDERED: ASPI-1497 MT (16:58)
[2022-06-04 20:00] VITALS: BP 104/66
[2022-06-04] MEDS: ATORVASTATIN CALCIUM 20MG TABLET PO SCH (20:17)
== END 2022-06-04 22:24 | disposition home or self-care (01) | DRG 203 ==
LOC: ER 01:12 → 8WST 08:10 → ENRESERV 14:39
PROVIDERS: ADMIT Internal Medicine; ATTEND Internal Medicine
DX: M94.0 Chondrocostal junction syndrome [Tietze] (principal); I50.23 Acute on chronic systolic (congestive) heart failure; I11.0 Hypertensive heart disease with heart failure; I42.0 Dilated cardiomyopathy; D64.9 Anemia, unspecified; Z20.822 Contact with and (suspected) exposure to COVID-19; F10.10 Alcohol abuse, uncomplicated; F17.200 Nicotine dependence, unspecified, uncomplicated; I07.1 Rheumatic tricuspid insufficiency; F12.90 Cannabis use, unspecified, uncomplicated; Z86.718 Personal history of other venous thrombosis and embolism; Z83.3 Family history of diabetes mellitus; Z82.49 Family history of ischemic heart disease and other diseases of the circulatory system; Z91.14 Patient's other noncompliance with medication regimen
CPT/HCPCS: 36415; 71045; 78582; 80048; 80053; 80305; 83735; 83880; 84100; 84484; 85025; 85379; 87426; 93005; 93306; 93970; 97162; 99285; A9558; J1650; J1940

== ENCOUNTER 2022-07-08 09:33 | Emergency (ER) | payer MEDICAID ==
[~2022-07-08] VITALS: Ht 188 cm; Wt 75.0 kg
[~2022-07-08 09:33] MED LIST changes: +ATOR20TA PO; -COR3 PO; +FURO40TA5 MT; -LOSA25TA3 PO; +LOSA50TA3 PO; +SPIR25TA6 MT
[2022-07-08 09:53] VITALS: BP 113/80
[2022-07-08] MEDS ORDERED: ATOR20TA65 PO (10:55)
[2022-07-08] MEDS ORDERED: SPIR25TA6 PO (10:55)
[2022-07-08] MEDS ORDERED: FURO40TA5 PO (10:55)
[2022-07-08] MEDS ORDERED: ASPI-1497 PO (10:55)
[2022-07-08] MEDS ORDERED: LOSA50TA41 PO (10:55)
[2022-07-08] MEDS ORDERED: POTA-79 MT (10:55)
== END 2022-07-08 11:10 | disposition home or self-care (01) ==
LOC: ER 09:33
DX: I11.0 Hypertensive heart disease with heart failure (principal); I50.9 Heart failure, unspecified; Z79.899 Other long term (current) drug therapy
CPT/HCPCS: 99283

== ENCOUNTER 2022-08-19 10:00 | Inpatient (IN) | payer MEDICAID ==
[~2022-08-19] VITALS: Ht 188 cm; Wt 69.9 kg
[~2022-08-19 10:00] MED LIST changes: +ASPI-1497 PO; +ATOR20TA65 PO; +LOSA50TA41 PO; +POTA-79 MT; +SPIR25TA6 PO
[2022-08-19 11:45] LABS: BASOPHILS % 0.6 % (0.0-2.0); EOSINOPHILS % 0.3 % (0.0-5.0); HEMATOCRIT. 24.6 % (42.0-52.0); HEMOGLOBIN. 7.3 g/dL (14.0-18.0); LYMPHOCYTES % 9.8 % (20.0-50.0); MEAN CORPUSCULAR HEMOGLOBIN 24.1 pg (28.0-32.0); MEAN CORPUSCULAR VOLUME 80.9 fL (80.0-94.0); MEAN PLATELET VOLUME 8.5 fl (7.4-10.4); MONOCYTES % 11.3 % (2.0-8.0); PLATELET 351 x1000/uL (130-400); RED BLOOD CELL COUNT 3.05 mill/uL (4.7-6.1); RED CELL DISTRIBUTION WIDTH 19.9 % (11.6-14.6)
[2022-08-19 12:11] LABS: CHLORIDE 104 mEq/L (98-107)
[2022-08-19] MEDS ORDERED: ASPIRIN 325MG TABLET PO ONE (12:45)
[2022-08-19] MEDS ORDERED: SODIUM CHLORIDE 0.9% 1,000 ML IV ONE ×2 (16:30)
[2022-08-19 17:00] VITALS: BP 107/59
[2022-08-19 17:10] VITALS: BP 107/59
[2022-08-19] MEDS ORDERED: ACETAMINOPHEN 325MG TABLET PO PRN ×2 (18:15)
[2022-08-19] MEDS ORDERED: DIPHENHYDRAMINE 50MG/ML VIAL IV PRN (18:15)
[2022-08-19] MEDS ORDERED: ZOLPIDEM TARTRATE 5MG TABLET PO PRN (18:15)
[2022-08-19] MEDS ORDERED: MAGNESIUM/ALUMINUM HYDROXIDE/SIMETHICONE 30ML UDC PO PRN (18:15)
[2022-08-19] MEDS ORDERED: ONDANSETRON HCL 4MG/2ML INJ IV PRN (18:15)
[2022-08-19] MEDS ORDERED: CLONIDINE 0.1MG TABLET PO PRN (18:15)
[2022-08-19] MEDS ORDERED: *PATIENT'S OWN MEDICATION STORAGE XX SCH (19:45)
[2022-08-19] MEDS: FUROSEMIDE 40MG/4ML VIAL IVP SCH (20:02)
[2022-08-19 20:24] VITALS: BP 100/64
[2022-08-19] MEDS: ENOXAPARIN 40MG/0.4ML SYR SUBCUT SCH (20:55)
[2022-08-19] MEDS: ATORVASTATIN CALCIUM 20MG TABLET PO SCH (20:55)
[2022-08-19] MEDS: OMEPRAZOLE 20MG CAPSULE EXTENDED RELEASE PO SCH (20:55)
[2022-08-19] MEDS: SODIUM CHLORIDE 0.9% INJ 3ML FLUSH IVF SCH (20:56)
[2022-08-19 21:16] LABS: TOTAL IRON BINDING CAPACITY 362 ug/dL (250-450)
[2022-08-20 00:23] VITALS: BP 121/77
[2022-08-20 04:00] VITALS: BP 97/59
[2022-08-20] MEDS: SODIUM CHLORIDE 0.9% INJ 3ML FLUSH IVF SCH ×3 (05:01→22:05)
[2022-08-20] MEDS: OMEPRAZOLE 20MG CAPSULE EXTENDED RELEASE PO SCH ×2 (06:45→22:06)
[2022-08-20 08:00] VITALS: BP 106/69
[2022-08-20] MEDS: SPIRONOLACTONE 25MG TABLET PO SCH (09:10)
[2022-08-20] MEDS: FUROSEMIDE 40MG/4ML VIAL IVP SCH ×2 (09:32→22:06)
[2022-08-20 12:00] VITALS: BP 103/60
[2022-08-20 16:00] VITALS: BP 119/62
[2022-08-20 17:59] LABS: CREATINE KINASE MB FRACTION 1.1 ng/mL (0.5-3.6)
[2022-08-20 18:02] LABS: T4 FREE 1.42 ng/dL (0.76-1.46)
[2022-08-20 18:16] LABS: *AMPHETAMINES SCREEN URINE NEGATIVE (NEGATIVE); *BARBITURATES SCREEN URINE NEGATIVE (NEGATIVE); *BENZODIAZEPINES SCREEN URINE NEGATIVE (NEGATIVE); *COCAINE SCREEN URINE NEGATIVE (NEGATIVE); CANNABINOID URINE SCREEN PRESUMTIVE POSITIVE (NEGATIVE); METHADONE URINE SCREEN NEGATIVE (NEGATIVE); OPIATES URINE SCREEN NEGATIVE (NEGATIVE); PHENCYCLIDINE URINE SCREEN NEGATIVE (NEGATIVE)
[2022-08-20 20:49] VITALS: BP 101/66
[2022-08-20] MEDS: ENOXAPARIN 40MG/0.4ML SYR SUBCUT SCH (22:05)
[2022-08-20] MEDS: ATORVASTATIN CALCIUM 20MG TABLET PO SCH (22:06)
[2022-08-21] VITALS (7 sets, daily range): BP systolic 97–114; BP diastolic 60–74
[2022-08-21] MEDS ORDERED: HYDROCODONE/ACETAMINOPHEN 5/325MG TABLET PO PRN (02:45)
[2022-08-21] MEDS ORDERED: NALOXONE HCL 0.4MG/ML VIAL IV PRN (03:00)
[2022-08-21 05:39] LABS: CREATINE KINASE MB FRACTION 1.5 ng/mL (0.5-3.6)
[2022-08-21] MEDS: OMEPRAZOLE 20MG CAPSULE EXTENDED RELEASE PO SCH ×2 (06:00→21:39)
[2022-08-21] MEDS: SODIUM CHLORIDE 0.9% INJ 3ML FLUSH IVF SCH ×3 (06:01→21:39)
[2022-08-21] MEDS: SPIRONOLACTONE 25MG TABLET PO SCH (08:57)
[2022-08-21] MEDS: FUROSEMIDE 40MG/4ML VIAL IVP SCH ×2 (09:00→21:38)
[2022-08-21 09:51] LABS: CREATINE KINASE MB FRACTION 1.9 ng/mL (0.5-3.6)
[2022-08-21 15:23] LABS: CHLORIDE 100 mEq/L (98-107)
[2022-08-21 15:28] LABS: PHOSPHORUS 2.9 mg/dL (2.5-4.9)
[2022-08-21] MEDS: ENOXAPARIN 40MG/0.4ML SYR SUBCUT SCH (21:39)
[2022-08-21] MEDS: ATORVASTATIN CALCIUM 20MG TABLET PO SCH (21:39)
[2022-08-22] VITALS: BP 118/72
[2022-08-22 04:00] VITALS: BP 105/61
[2022-08-22] MEDS: SODIUM CHLORIDE 0.9% INJ 3ML FLUSH IVF SCH ×3 (05:00→21:13)
[2022-08-22] MEDS: OMEPRAZOLE 20MG CAPSULE EXTENDED RELEASE PO SCH ×2 (06:21→21:12)
[2022-08-22 08:00] VITALS: BP 106/72
[2022-08-22] MEDS: SPIRONOLACTONE 25MG TABLET PO SCH (08:41)
[2022-08-22] MEDS: FUROSEMIDE 40MG/4ML VIAL IVP SCH ×2 (08:41→21:00)
[2022-08-22 11:36] VITALS: BP 105/65
[2022-08-22 16:00] VITALS: BP 135/60
[2022-08-22] MEDS: ATORVASTATIN CALCIUM 20MG TABLET PO SCH (21:12)
[2022-08-22] MEDS: ENOXAPARIN 40MG/0.4ML SYR SUBCUT SCH (21:13)
[2022-08-22 23:41] VITALS: BP 99/72
[2022-08-23 04:42] VITALS: BP 100/62
[2022-08-23 06:45] LABS: CHLORIDE 98 mEq/L (98-107)
[2022-08-23 06:53] LABS: PHOSPHORUS 2.5 mg/dL (2.5-4.9)
[2022-08-23 08:00] VITALS: BP 115/70
[2022-08-23] MEDS: OMEPRAZOLE 20MG CAPSULE EXTENDED RELEASE PO SCH ×2 (08:57→21:00)
[2022-08-23] MEDS: FUROSEMIDE 40MG/4ML VIAL IVP SCH ×2 (08:57→21:42)
[2022-08-23] MEDS: SPIRONOLACTONE 25MG TABLET PO SCH (08:57)
[2022-08-23 12:00] VITALS: BP 101/61
[2022-08-23] MEDS ORDERED: MAGNESIUM 2 G PREMIX 50 ML IV SCH (12:15)
[2022-08-23 16:00] VITALS: BP 109/70
[2022-08-23 19:42] VITALS: BP 115/75
[2022-08-23] MEDS ORDERED: METOLAZONE 10MG TABLET PO NR (21:30)
[2022-08-23] MEDS ORDERED: POTASSIUM CHLORIDE 20MEQ TABLET SR PO NR (21:30)
[2022-08-23] MEDS: ATORVASTATIN CALCIUM 20MG TABLET PO SCH (21:42)
[2022-08-23] MEDS: SODIUM CHLORIDE 0.9% INJ 3ML FLUSH IVF SCH ×2 (21:48→22:00)
[2022-08-23] MEDS: ENOXAPARIN 40MG/0.4ML SYR SUBCUT SCH (21:49)
[2022-08-23 23:51] VITALS: BP 107/79
[2022-08-24] VITALS (10 sets, daily range): BP systolic 95–120; BP diastolic 60–94
[2022-08-24] MEDS: SODIUM CHLORIDE 0.9% INJ 3ML FLUSH IVF SCH ×2 (06:13→21:40)
[2022-08-24 06:51] LABS: BASOPHILS % 0.9 % (0.0-2.0); EOSINOPHILS % 0.5 % (0.0-5.0); HEMATOCRIT. 21.9 % (42.0-52.0); LYMPHOCYTES % 10.6 % (20.0-50.0); MEAN CORPUSCULAR HEMOGLOBIN 23.6 pg (28.0-32.0); MEAN CORPUSCULAR VOLUME 79.3 fL (80.0-94.0); MONOCYTES % 9.5 % (2.0-8.0); NEUTROPHILS % 78.5 % (40.0-76.0); PLATELET 307 x1000/uL (130-400); RED BLOOD CELL COUNT 2.76 mill/uL (4.7-6.1); RED CELL DISTRIBUTION WIDTH 20.2 % (11.6-14.6)
[2022-08-24 08:01] LABS: HEMOGLOBIN. 6.5 g/dL (14.0-18.0)
[2022-08-24] MEDS: OMEPRAZOLE 20MG CAPSULE EXTENDED RELEASE PO SCH ×2 (09:03→21:00)
[2022-08-24] MEDS: SPIRONOLACTONE 25MG TABLET PO SCH (09:04)
[2022-08-24] MEDS: FUROSEMIDE 40MG/4ML VIAL IVP SCH ×2 (09:04→21:38)
[2022-08-24] MEDS: ATORVASTATIN CALCIUM 20MG TABLET PO SCH (21:40)
[2022-08-25] VITALS (9 sets, daily range): BP systolic 84–89; BP diastolic 49–65
[2022-08-25] MEDS: SODIUM CHLORIDE 0.9% INJ 3ML FLUSH IVF SCH ×2 (05:10→13:30)
[2022-08-25] MEDS: SPIRONOLACTONE 25MG TABLET PO SCH (09:00)
[2022-08-25] MEDS ORDERED: PANTOPRAZOLE SODIUM 40 MG/VIAL IV SCH (09:00)
[2022-08-25] MEDS: FUROSEMIDE 40MG/4ML VIAL IVP SCH (09:00)
[2022-08-25] MEDS: METOLAZONE 10MG TABLET PO SCH ×2 (09:00→12:14)
[2022-08-25 11:04] LABS: BASOPHILS % 0.8 % (0.0-2.0); EOSINOPHILS % 0.6 % (0.0-5.0); HEMOGLOBIN. 8.5 g/dL (14.0-18.0); LYMPHOCYTES % 7.5 % (20.0-50.0); MEAN CORPUSCULAR HEMOGLOBIN 24.9 pg (28.0-32.0); MEAN CORPUSCULAR VOLUME 78.5 fL (80.0-94.0); MEAN PLATELET VOLUME 9.1 fl (7.4-10.4); NEUTROPHILS % 82.1 % (40.0-76.0); PLATELET 294 x1000/uL (130-400); RED BLOOD CELL COUNT 3.43 mill/uL (4.7-6.1); RED CELL DISTRIBUTION WIDTH 18.3 % (11.6-14.6)
[2022-08-25 11:46] LABS: CHLORIDE 96 mEq/L (98-107)
[2022-08-25 11:50] LABS: PHOSPHORUS 2.4 mg/dL (2.5-4.9)
[2022-08-25] MEDS ORDERED: MIDODRINE HCL 5MG TABLET PO SCH (14:00)
== END 2022-08-25 18:58 | disposition home or self-care (01) | DRG 194 ==
LOC: ER 12:44 → EDBEDREQ 12:56 → 7WST 14:14 → EDBEDREQ 14:21
PROVIDERS: ADMIT Internal Medicine; ATTEND Internal Medicine
PROC: 30233N1 Transfusion of Nonautologous Red Blood Cells into Peripheral Vein, Percutaneous Approach (ICD-10-PCS; principal; 2022-08-24)
DX: I11.0 Hypertensive heart disease with heart failure (principal); I27.20 Pulmonary hypertension, unspecified; I47.20 Ventricular tachycardia, unspecified; I42.8 Other cardiomyopathies; I50.23 Acute on chronic systolic (congestive) heart failure; D64.9 Anemia, unspecified; F12.90 Cannabis use, unspecified, uncomplicated; F10.10 Alcohol abuse, uncomplicated; Z86.718 Personal history of other venous thrombosis and embolism; Z91.14 Patient's other noncompliance with medication regimen; Z83.3 Family history of diabetes mellitus; Z82.49 Family history of ischemic heart disease and other diseases of the circulatory system; Z79.899 Other long term (current) drug therapy; Z87.891 Personal history of nicotine dependence
CPT/HCPCS: 36415; 71045; 80048; 80053; 80061; 80305; 82270; 82550; 82553; 83036; 83540; 83550; 83735; 83880; 84100; 84439; 84443; 84484; 85025; 85379; 86850; 86900; 86920; 93306; 99285; C9113; J1650; J1940; J3475; J7030; P9016

== ENCOUNTER 2022-09-14 18:20 | Inpatient (IN) | payer MEDICAID ==
[~2022-09-14] VITALS: Ht 188 cm; Wt 72.1 kg
[2022-09-15 03:31] LABS: BASOPHILS % 0.6 % (0.0-2.0); EOSINOPHILS % 1.5 % (0.0-5.0); HEMATOCRIT. 26.2 % (42.0-52.0); HEMOGLOBIN. 7.9 g/dL (14.0-18.0); LYMPHOCYTES % 8.8 % (20.0-50.0); MEAN CORPUSCULAR HEMOGLOBIN 23.9 pg (28.0-32.0); MEAN CORPUSCULAR VOLUME 79.2 fL (80.0-94.0); MEAN PLATELET VOLUME 8.6 fl (7.4-10.4); MONOCYTES % 9.2 % (2.0-8.0); NEUTROPHILS % 79.9 % (40.0-76.0); PLATELET 325 x1000/uL (130-400); RED CELL DISTRIBUTION WIDTH 20.7 % (11.6-14.6)
[2022-09-15 03:45] LABS: CHLORIDE 103 mEq/L (98-107)
[2022-09-15] MEDS ORDERED: MAGNESIUM/ALUMINUM HYDROXIDE/SIMETHICONE 30ML UDC PO PRN (07:00)
[2022-09-15] MEDS ORDERED: ONDANSETRON HCL 4MG/2ML INJ IV PRN (07:00)
[2022-09-15] MEDS ORDERED: NA PHOS,M-B/NA PHOS,DI-BA ENEMA 118ML PR PRN (07:00)
[2022-09-15] MEDS ORDERED: DOCUSATE SODIUM 100MG CAPSULE PO PRN (07:00)
[2022-09-15] MEDS ORDERED: IPRATROPIUM/ALBUTEROL 0.5-3(2.5)MG/3ML NEB NEB PRN (07:00)
[2022-09-15] MEDS ORDERED: CLONIDINE 0.1MG TABLET PO PRN (07:00)
[2022-09-15] MEDS ORDERED: ACETAMINOPHEN 325MG TABLET PO PRN (07:00)
[2022-09-15] MEDS ORDERED: ZOLPIDEM TARTRATE 5MG TABLET PO PRN (07:00)
[2022-09-15] MEDS ORDERED: NITROGLYCERIN 0.4MG TABLET SL SL PRN (07:00)
[2022-09-15 09:00] VITALS: BP 111/80
[2022-09-15] MEDS ORDERED: FUROSEMIDE 40MG/4ML VIAL IVP SCH (09:00)
[2022-09-15] MEDS: ACETAMINOPHEN 325MG TABLET PO PRN ×2 (09:28→17:03)
[2022-09-15] MEDS: SPIRONOLACTONE 25MG TABLET PO SCH ×2 (09:28→21:17)
[2022-09-15] MEDS: PANTOPRAZOLE SODIUM 40 MG/VIAL IV SCH (09:29)
[2022-09-15] MEDS: KETOROLAC 15MG/ML VIAL IV PRN ×2 (09:30→17:04)
[2022-09-15 09:36] LABS: T4 FREE 1.28 ng/dL (0.76-1.46)
[2022-09-15 09:57] LABS: VITAMIN B12 SERUM 563 pg/mL (211-911)
[2022-09-15 10:00] VITALS: BP 110/80
[2022-09-15 12:00] VITALS: BP 113/75
[2022-09-15] MEDS ORDERED: POTASSIUM CHLORIDE 20MEQ TABLET SR PO NR (12:00)
[2022-09-15 16:00] VITALS: BP 112/69
[2022-09-15] MEDS: FUROSEMIDE 40MG/4ML VIAL IVP SCH (17:04)
[2022-09-15 17:35] LABS: *AMPHETAMINES SCREEN URINE NEGATIVE (NEGATIVE); *BARBITURATES SCREEN URINE NEGATIVE (NEGATIVE); *BENZODIAZEPINES SCREEN URINE NEGATIVE (NEGATIVE); *COCAINE SCREEN URINE NEGATIVE (NEGATIVE); CANNABINOID URINE SCREEN PRESUMTIVE POSITIVE (NEGATIVE); METHADONE URINE SCREEN NEGATIVE (NEGATIVE); OPIATES URINE SCREEN NEGATIVE (NEGATIVE); PHENCYCLIDINE URINE SCREEN NEGATIVE (NEGATIVE)
[2022-09-15 20:00] VITALS: BP 105/69
[2022-09-15 22:48] LABS: CREATINE KINASE MB FRACTION 1.6 ng/mL (0.5-3.6)
[2022-09-16] VITALS: BP 107/71
[2022-09-16 04:00] VITALS: BP 111/82
[2022-09-16] MEDS: FUROSEMIDE 40MG/4ML VIAL IVP SCH ×2 (06:32→16:29)
[2022-09-16 07:09] LABS: BASOPHILS % 0.9 % (0.0-2.0); EOSINOPHILS % 1.3 % (0.0-5.0); HEMATOCRIT. 26.2 % (42.0-52.0); HEMOGLOBIN. 8.1 g/dL (14.0-18.0); LYMPHOCYTES % 9.1 % (20.0-50.0); MEAN CORPUSCULAR HEMOGLOBIN 24.7 pg (28.0-32.0); MEAN CORPUSCULAR VOLUME 80.2 fL (80.0-94.0); MEAN PLATELET VOLUME 8.7 fl (7.4-10.4); MONOCYTES % 5.6 % (2.0-8.0); NEUTROPHILS % 83.1 % (40.0-76.0); PLATELET 321 x1000/uL (130-400); RED BLOOD CELL COUNT 3.26 mill/uL (4.7-6.1); RED CELL DISTRIBUTION WIDTH 20.6 % (11.6-14.6)
[2022-09-16 08:00] VITALS: BP 108/77
[2022-09-16] MEDS: SPIRONOLACTONE 25MG TABLET PO SCH ×2 (08:23→21:00)
[2022-09-16] MEDS: ACETAMINOPHEN 325MG TABLET PO PRN ×2 (08:23→16:35)
[2022-09-16] MEDS: PANTOPRAZOLE SODIUM 40 MG/VIAL IV SCH (08:23)
[2022-09-16] MEDS: GUAIFENESIN 200MG/10ML SUGAR FREE UDC PO PRN (08:27)
[2022-09-16 11:23] LABS: CREATINE KINASE 148 IU/L (39-308); CREATINE KINASE MB FRACTION 1.6 ng/mL (0.5-3.6); PHOSPHORUS 3.4 mg/dL (2.5-4.9)
[2022-09-16 12:00] VITALS: BP 110/76
[2022-09-16 13:49] LABS: CHLORIDE 99 mEq/L (98-107)
[2022-09-16 16:00] VITALS: BP 111/82
[2022-09-16 20:00] VITALS: BP 108/82
[2022-09-17] VITALS: BP 108/78
[2022-09-17 04:00] VITALS: BP 106/77
[2022-09-17] MEDS: GUAIFENESIN 200MG/10ML SUGAR FREE UDC PO PRN (06:16)
[2022-09-17] MEDS: FUROSEMIDE 40MG/4ML VIAL IVP SCH ×2 (06:16→16:50)
[2022-09-17 08:00] VITALS: BP 98/63
[2022-09-17] MEDS: SPIRONOLACTONE 25MG TABLET PO SCH ×2 (08:19→20:08)
[2022-09-17] MEDS: FAMOTIDINE 20MG TABLET PO SCH ×2 (08:19→20:10)
[2022-09-17 12:00] VITALS: BP 110/87
[2022-09-17 16:00] VITALS: BP 105/72
[2022-09-17 20:00] VITALS: BP 100/60
[2022-09-18] VITALS: BP 118/82
[2022-09-18 04:00] VITALS: BP 110/80
[2022-09-18] MEDS: FUROSEMIDE 40MG/4ML VIAL IVP SCH (05:58)
[2022-09-18 08:00] VITALS: BP 118/71
[2022-09-18] MEDS: FAMOTIDINE 20MG TABLET PO SCH (09:07)
[2022-09-18] MEDS: SPIRONOLACTONE 25MG TABLET PO SCH (09:07)
[2022-09-18] MEDS ORDERED: SPIR25TA MT (10:22)
[2022-09-18] MEDS ORDERED: FURO40TA5 PO (10:22)
[2022-09-18] MEDS ORDERED: ATOR20TA PO (10:22)
[2022-09-18] MEDS ORDERED: LOSA50TA3 PO (10:22)
[2022-09-18] MEDS ORDERED: ASPI-1497 MT (10:22)
[2022-09-18 12:00] VITALS: BP 115/83
[2022-09-18 15:10] VITALS: BP_SYST 109; BP_SYST 115; BP_DIAS 81; BP_DIAS 83
[2022-09-18 16:00] VITALS: BP 109/81
== END 2022-09-18 17:00 | disposition home or self-care (01) | DRG 194 ==
LOC: ER 18:20 → 8WST 09-15 04:43 → EDBEDREQTM 09-15 04:45 → EDBEDREQ 09-15 04:45
PROVIDERS: ADMIT Internal Medicine; ATTEND Internal Medicine
DX: I11.0 Hypertensive heart disease with heart failure (principal); E43 Unspecified severe protein-calorie malnutrition; E83.51 Hypocalcemia; E87.1 Hypo-osmolality and hyponatremia; Z20.822 Contact with and (suspected) exposure to COVID-19; D50.9 Iron deficiency anemia, unspecified; Z59.00 Homelessness unspecified; Z83.3 Family history of diabetes mellitus; Z82.49 Family history of ischemic heart disease and other diseases of the circulatory system; Z79.899 Other long term (current) drug therapy; Z68.20 Body mass index [BMI] 20.0-20.9, adult; I50.43 Acute on chronic combined systolic (congestive) and diastolic (congestive) heart failure; R07.9 Chest pain, unspecified
CPT/HCPCS: 36415; 71045; 80053; 80061; 80305; 82270; 82550; 82553; 82607; 82746; 83036; 83540; 83550; 83735; 83880; 84100; 84439; 84443; 84484; 85025; 87426; 93005; 93970; 94640; 99285; C9113; J1885; J1940

== ENCOUNTER 2022-12-21 14:01 | Inpatient (IN) | payer MEDICAID ==
[~2022-12-21] VITALS: Ht 188 cm; Wt 72.6 kg
[~2022-12-21 14:01] MED LIST changes: -ASPI-1497 PO; -ATOR20TA PO; +CARV3.1242 MT; -FURO40TA5 PO; +LISI-186 MT; -LOSA50TA3 PO; -LOSA50TA41 PO; -POTA-79 MT; -SPIR25TA6 MT; -SPIR25TA6 PO
[2022-12-21] MEDS ORDERED: ASPIRIN 81MG TABLET PO ONE (15:45)
[2022-12-21] MEDS ORDERED: FUROSEMIDE 40MG/4ML VIAL IV ONE (15:45)
[2022-12-21] MEDS ORDERED: NITROGLYCERIN OINT 1GM/INCH UDPKT TD ONE (15:45)
[2022-12-21 16:19] LABS: BASOPHILS % 0.8 % (0.0-2.0); EOSINOPHILS % 0.5 % (0.0-5.0); HEMATOCRIT. 30.6 % (42.0-52.0); LYMPHOCYTES % 8.9 % (20.0-50.0); MEAN CORPUSCULAR HEMOGLOBIN 24.9 pg (28.0-32.0); MEAN CORPUSCULAR VOLUME 84.2 fL (80.0-94.0); MEAN PLATELET VOLUME 8.7 fl (7.4-10.4); MONOCYTES % 8.8 % (2.0-8.0); PLATELET 328 x1000/uL (130-400); RED BLOOD CELL COUNT 3.64 mill/uL (4.7-6.1); RED CELL DISTRIBUTION WIDTH 25.9 % (11.6-14.6)
[2022-12-21 16:31] LABS: CHLORIDE 103 mEq/L (98-107)
[2022-12-21] MEDS ORDERED: KCL 10MEQ/50ML PREMIX 50 ML IV ONE (17:00)
[2022-12-21 18:26] LABS: PLATELET ESTIMATE NORMAL
[2022-12-21] MEDS ORDERED: FUROSEMIDE 40MG/4ML VIAL IV NR (18:30)
[2022-12-21] MEDS ORDERED: NITROGLYCERIN OINT 1GM/INCH UDPKT TD NR (18:30)
[2022-12-21] MEDS ORDERED: ASPIRIN 81MG TABLET PO NR (18:30)
[2022-12-22] MEDS ORDERED: DOCUSATE SODIUM 100MG CAPSULE PO PRN (01:30)
[2022-12-22] MEDS ORDERED: MAGNESIUM/ALUMINUM HYDROXIDE/SIMETHICONE 30ML UDC PO PRN (01:30)
[2022-12-22] MEDS ORDERED: CLONIDINE 0.1MG TABLET PO PRN (01:30)
[2022-12-22] MEDS ORDERED: LORAZEPAM 2MG/ML CPJ IV PRN (01:30)
[2022-12-22] MEDS ORDERED: SODIUM PHOS,M-BASIC-D-BASIC 10 MM in DEXT 5% WATER 246.6667 ML IV NR (05:00)
[2022-12-22] MEDS ORDERED: DOXYCYCLINE 100 MG in DEXT 5% WATER 100 ML IV SCH ×2 (06:00→07:00)
[2022-12-22 10:24] VITALS: BP 119/86
[2022-12-22] MEDS: FUROSEMIDE 40MG/4ML VIAL IV SCH ×2 (10:34→16:56)
[2022-12-22] MEDS: ASPIRIN 81MG TABLET PO SCH (10:34)
[2022-12-22] MEDS: CARVEDILOL 3.125 MG TABLET PO SCH ×2 (10:34→17:00)
[2022-12-22] MEDS: FAMOTIDINE 20MG TABLET PO SCH ×3 (10:35→21:17)
[2022-12-22] MEDS: LISINOPRIL 5MG TABLET PO SCH (10:35)
[2022-12-22] MEDS: ENOXAPARIN 40MG/0.4ML SYR SUBCUT SCH (10:36)
[2022-12-22] MEDS ORDERED: POTASSIUM CHLORIDE 20MEQ TABLET SR PO NR ×2 (12:15→22:00)
[2022-12-22] MEDS ORDERED: SODIUM CHLORIDE 3% FOR INH 4ML UD NEB INH SCH (12:15)
[2022-12-22] MEDS: POTASSIUM CHLORIDE 20MEQ TABLET SR PO SCH (12:56)
[2022-12-22 15:11] LABS: CHLORIDE 105 mEq/L (98-107)
[2022-12-22 16:30] VITALS: BP 110/82
[2022-12-22] MEDS: DOXYCYCLINE 100 MG in DEXT 5% WATER 100 ML IV SCH (16:50)
[2022-12-22] MEDS: IPRATROPIUM BROMIDE (0.02%) 0.5MG/2.5ML NEB HHN SCH ×2 (17:56→20:56)
[2022-12-22] MEDS: ACETYLCYSTEINE 200MG/ML 20% VIAL 4ML INH SCH ×2 (17:56→20:56)
[2022-12-22 20:00] VITALS: BP 111/65
[2022-12-22] MEDS ORDERED: NITROGLYCERIN 0.4MG TABLET SL SL PRN (22:00)
[2022-12-23] VITALS: BP 102/60
[2022-12-23] MEDS: ACETYLCYSTEINE 200MG/ML 20% VIAL 4ML INH SCH ×3 (02:13→13:52)
[2022-12-23] MEDS: IPRATROPIUM BROMIDE (0.02%) 0.5MG/2.5ML NEB HHN SCH ×3 (02:13→13:52)
[2022-12-23 04:00] VITALS: BP 107/70
[2022-12-23] MEDS: DOXYCYCLINE 100 MG in DEXT 5% WATER 100 ML IV SCH ×2 (04:27→16:57)
[2022-12-23 06:06] LABS: HEMATOCRIT. 30.1 % (42.0-52.0); HEMOGLOBIN. 9.2 g/dL (14.0-18.0); MEAN CORPUSCULAR HEMOGLOBIN 25.2 pg (28.0-32.0); MEAN CORPUSCULAR VOLUME 82.6 fL (80.0-94.0); MEAN PLATELET VOLUME 8.9 fl (7.4-10.4); PLATELET 303 x1000/uL (130-400); RED BLOOD CELL COUNT 3.64 mill/uL (4.7-6.1); RED CELL DISTRIBUTION WIDTH 24.7 % (11.6-14.6)
[2022-12-23 07:00] LABS: CHLORIDE 105 mEq/L (98-107)
[2022-12-23 07:14] LABS: HDL CHOLESTEROL 20 mg/dL (40-59); LDL CHOLESTEROL 50 mg/dL (5-100); T4 FREE 1.58 ng/dL (0.76-1.46)
[2022-12-23 08:00] VITALS: BP 102/66
[2022-12-23] MEDS: CARVEDILOL 3.125 MG TABLET PO SCH ×4 (09:00→17:17)
[2022-12-23] MEDS: LISINOPRIL 5MG TABLET PO SCH (09:00)
[2022-12-23 09:10] LABS: ESTRADIOL 36.9 pg/mL (7.6-42.6); LUTEINIZING HORMONE 4.9 mIU/mL (1.7-8.6)
[2022-12-23] MEDS: FUROSEMIDE 40MG/4ML VIAL IV SCH ×2 (09:15→16:57)
[2022-12-23] MEDS: POTASSIUM CHLORIDE 20MEQ TABLET SR PO SCH (09:16)
[2022-12-23] MEDS: FAMOTIDINE 20MG TABLET PO SCH ×2 (09:17→21:00)
[2022-12-23] MEDS: ENOXAPARIN 40MG/0.4ML SYR SUBCUT SCH (09:17)
[2022-12-23] MEDS: ASPIRIN 81MG TABLET PO SCH (09:18)
[2022-12-23] MEDS ORDERED: METOLAZONE 2.5MG TABLET PO SCH (11:30)
[2022-12-23 12:00] VITALS: BP 100/75
[2022-12-23] MEDS: SPIRONOLACTONE 25MG TABLET PO SCH (14:12)
[2022-12-23 16:00] VITALS: BP 113/79
[2022-12-23 20:00] VITALS: BP 113/85
[2022-12-23 21:15] LABS: PLATELET ESTIMATE NORMAL
[2022-12-24] VITALS: BP 93/47
[2022-12-24 04:00] VITALS: BP 89/60
[2022-12-24] MEDS: DOXYCYCLINE 100 MG in DEXT 5% WATER 100 ML IV SCH (04:58)
[2022-12-24 07:07] LABS: BASOPHILS % 0.5 % (0.0-2.0); EOSINOPHILS % 0.1 % (0.0-5.0); HEMATOCRIT. 28.1 % (42.0-52.0); HEMOGLOBIN. 8.4 g/dL (14.0-18.0); LYMPHOCYTES % 7.3 % (20.0-50.0); MEAN CORPUSCULAR HEMOGLOBIN 25.1 pg (28.0-32.0); MEAN CORPUSCULAR VOLUME 83.7 fL (80.0-94.0); MEAN PLATELET VOLUME 8.9 fl (7.4-10.4); MONOCYTES % 7.8 % (2.0-8.0); NEUTROPHILS % 84.3 % (40.0-76.0); PLATELET 238 x1000/uL (130-400); RED BLOOD CELL COUNT 3.36 mill/uL (4.7-6.1); RED CELL DISTRIBUTION WIDTH 24.6 % (11.6-14.6)
[2022-12-24 07:14] LABS: CHLORIDE 103 mEq/L (98-107)
[2022-12-24 08:00] VITALS: BP 91/60
[2022-12-24 08:57] VITALS: BP 91/60
[2022-12-24] MEDS: CARVEDILOL 3.125 MG TABLET PO SCH (09:00)
[2022-12-24] MEDS: FUROSEMIDE 40MG/4ML VIAL IV SCH (09:00)
[2022-12-24] MEDS: LISINOPRIL 5MG TABLET PO SCH (09:00)
[2022-12-24] MEDS: SPIRONOLACTONE 25MG TABLET PO SCH (09:00)
== END 2022-12-24 09:50 | disposition home or self-care (01) | DRG 194 ==
LOC: ER 14:01 → 7EST 19:12
PROVIDERS: ADMIT Hospitalist; ATTEND Hospitalist
DX: I11.0 Hypertensive heart disease with heart failure (principal); J96.21 Acute and chronic respiratory failure with hypoxia; E44.0 Moderate protein-calorie malnutrition; I42.0 Dilated cardiomyopathy; E83.39 Other disorders of phosphorus metabolism; E11.9 Type 2 diabetes mellitus without complications; D64.9 Anemia, unspecified; I50.23 Acute on chronic systolic (congestive) heart failure; I47.20 Ventricular tachycardia, unspecified; E87.6 Hypokalemia; E78.5 Hyperlipidemia, unspecified; I08.1 Rheumatic disorders of both mitral and tricuspid valves; N62 Hypertrophy of breast; N64.3 Galactorrhea not associated with childbirth; F15.90 Other stimulant use, unspecified, uncomplicated; F14.90 Cocaine use, unspecified, uncomplicated; F10.10 Alcohol abuse, uncomplicated; F17.200 Nicotine dependence, unspecified, uncomplicated; Z86.74 Personal history of sudden cardiac arrest; Z87.01 Personal history of pneumonia (recurrent); Z79.82 Long term (current) use of aspirin; Z79.899 Other long term (current) drug therapy; Z68.20 Body mass index [BMI] 20.0-20.9, adult; Z86.718 Personal history of other venous thrombosis and embolism; Z91.199 Patient's noncompliance with other medical treatment and regimen due to unspecified reason; Z83.3 Family history of diabetes mellitus; Z82.49 Family history of ischemic heart disease and other diseases of the circulatory system
CPT/HCPCS: 36415; 71045; 76604; 76642; 76700; 76870; 80048; 80053; 80061; 82248; 82670; 83002; 83735; 83880; 84100; 84132; 84146; 84402; 84439; 84443; 84484; 85025; 87426; 93005; 93970; 93976; 94640; 97162; 99285; J1650; J1940; J3480; J3490; J7060; J7608

== ENCOUNTER 2023-01-16 15:48 | Inpatient (IN) | payer MEDICAID ==
[~2023-01-16] VITALS: Ht 188 cm; Wt 79.0 kg
[2023-01-16] MEDS ORDERED: FUROSEMIDE 40MG/4ML VIAL IVP ONE (18:45)
[2023-01-16] MEDS ORDERED: CEFTRIAXONE 1GM PREMIX 50 ML IV ONE (18:45)
[2023-01-16] MEDS ORDERED: AZITHROMYCIN 500 MG TABLET PO ONE (18:45)
[2023-01-16 19:37] LABS: CHLORIDE 104 mEq/L (98-107)
[2023-01-16 19:39] LABS: BASOPHILS % 1.1 % (0.0-2.0); EOSINOPHILS % 2.4 % (0.0-5.0); HEMATOCRIT. 30.8 % (42.0-52.0); HEMOGLOBIN. 9.3 g/dL (14.0-18.0); LYMPHOCYTES % 19.7 % (20.0-50.0); MEAN CORPUSCULAR HEMOGLOBIN 25.1 pg (28.0-32.0); MEAN CORPUSCULAR VOLUME 83.2 fL (80.0-94.0); MEAN PLATELET VOLUME 9.1 fl (7.4-10.4); MONOCYTES % 13.2 % (2.0-8.0); NEUTROPHILS % 63.6 % (40.0-76.0); PLATELET 226 x1000/uL (130-400)
[2023-01-16 20:34] LABS: BG BASE EXCESS -0.7 mmol/L (-2.0-2.0); BG CARBOXYHEMOGLOBIN 0.6 % (0.5-1.5); BG DEOXYHEMOGLOBIN 2.5 % (0.0-5.0); BG FRACTION INSPIRED OXYGEN 28; BG HCO3 ACT 22.8 mmol/L (22.0-26.0); BG METHEMOGLOBIN 0.2 % (0.0-1.5); BG OXYGEN SATURATION 97.5 % (92.0-98.5); BG OXYHEMOGLOBIN 96.7 % (94.0-97.0); BG PCO2 33.3 mmHg (35.0-45.0); BG PH 7.454 (7.350-7.450); BG PO2 98.4 mmHg (75.0-100.0); BG SAMPLE SITE RIGHT RADIAL; BG VENT MODE NASAL CANNULA
[2023-01-16 20:53] LABS: PLATELET ESTIMATE NORMAL
[2023-01-17] VITALS (7 sets, daily range): BP systolic 98–141; BP diastolic 49–70
[2023-01-17] MEDS ORDERED: POTASSIUM CHLORIDE 20MEQ TABLET SR PO NR (00:45)
[2023-01-17] MEDS: ASPIRIN 81MG TABLET PO SCH (09:41)
[2023-01-17] MEDS: FUROSEMIDE 40MG/4ML VIAL IVP SCH ×2 (09:41→17:58)
[2023-01-17] MEDS: CARVEDILOL 6.25 MG TABLET PO SCH ×2 (09:42→20:28)
[2023-01-17] MEDS: LISINOPRIL 20MG TABLET PO SCH (09:42)
[2023-01-17] MEDS: ENOXAPARIN 40MG/0.4ML SYR SUBCUT SCH (09:51)
[2023-01-17] MEDS: METOLAZONE 2.5MG TABLET PO SCH (13:06)
[2023-01-17] MEDS: ACETAMINOPHEN 325MG TABLET PO PRN (13:06)
[2023-01-17] MEDS ORDERED: AZITHROMYCIN 500 MG in DEXT 5% WATER 250 ML IV SCH ×2 (14:00→18:00)
[2023-01-17] MEDS ORDERED: NALOXONE HCL 0.4MG/ML VIAL IV PRN (17:45)
[2023-01-17] MEDS: HYDROCODONE/ACETAMINOPHEN 5/325MG TABLET PO PRN (17:59)
[2023-01-18] VITALS: BP 94/63
[2023-01-18 04:00] VITALS: BP 96/51
[2023-01-18 06:15] LABS: *AMPHETAMINES SCREEN URINE NEGATIVE (NEGATIVE); *BARBITURATES SCREEN URINE NEGATIVE (NEGATIVE); *BENZODIAZEPINES SCREEN URINE NEGATIVE (NEGATIVE); *COCAINE SCREEN URINE NEGATIVE (NEGATIVE); CANNABINOID URINE SCREEN NEGATIVE (NEGATIVE); METHADONE URINE SCREEN NEGATIVE (NEGATIVE); OPIATES URINE SCREEN PRESUMTIVE POSITIVE (NEGATIVE); PHENCYCLIDINE URINE SCREEN NEGATIVE (NEGATIVE)
[2023-01-18 07:27] LABS: CHLORIDE 102 mEq/L (98-107)
[2023-01-18 08:00] VITALS: BP 101/74
[2023-01-18] MEDS: CARVEDILOL 6.25 MG TABLET PO SCH ×2 (09:00→20:52)
[2023-01-18] MEDS: LISINOPRIL 20MG TABLET PO SCH (09:00)
[2023-01-18] MEDS ORDERED: POTASSIUM CHLORIDE 20MEQ TABLET SR PO NR (09:00)
[2023-01-18] MEDS: FUROSEMIDE 40MG/4ML VIAL IVP SCH ×2 (09:45→18:04)
[2023-01-18] MEDS: ASPIRIN 81MG TABLET PO SCH (09:45)
[2023-01-18] MEDS: METOLAZONE 2.5MG TABLET PO SCH (09:45)
[2023-01-18] MEDS: ENOXAPARIN 40MG/0.4ML SYR SUBCUT SCH (09:46)
[2023-01-18 12:00] VITALS: BP 106/73
[2023-01-18 16:00] VITALS: BP 92/63
[2023-01-18 20:00] VITALS: BP 105/68
[2023-01-19] VITALS: BP 99/65
[2023-01-19 04:00] VITALS: BP 98/67
[2023-01-19 08:06] VITALS: BP 101/66
[2023-01-19] MEDS: CARVEDILOL 6.25 MG TABLET PO SCH ×3 (08:18→20:38)
[2023-01-19] MEDS: METOLAZONE 2.5MG TABLET PO SCH (08:18)
[2023-01-19] MEDS: FUROSEMIDE 40MG/4ML VIAL IVP SCH ×2 (08:18→16:08)
[2023-01-19] MEDS: ASPIRIN 81MG TABLET PO SCH (08:18)
[2023-01-19] MEDS: ENOXAPARIN 40MG/0.4ML SYR SUBCUT SCH (08:19)
[2023-01-19] MEDS: LISINOPRIL 20MG TABLET PO SCH (08:19)
[2023-01-19 11:41] VITALS: BP 89/60
[2023-01-19 15:39] VITALS: BP 100/61
[2023-01-19 20:00] VITALS: BP 107/71
[2023-01-19] MEDS ORDERED: METOLAZONE 2.5MG TABLET PO NR (21:30)
[2023-01-19] MEDS ORDERED: POTA-205 MT (21:31)
[2023-01-19] MEDS ORDERED: FURO80TA87 MT (21:31)
[2023-01-19] MEDS ORDERED: CARV3.1242 MT (21:31)
[2023-01-19] MEDS ORDERED: LISI-186 MT (21:31)
[2023-01-19] MEDS ORDERED: METO2.5T2 MT (21:32)
[2023-01-19] MEDS: POTASSIUM CHLORIDE 20MEQ TABLET SR PO SCH (22:25)
[2023-01-20] VITALS (7 sets, daily range): BP systolic 81–117; BP diastolic 49–70
[2023-01-20] MEDS: FUROSEMIDE 100MG/10ML VIAL IVP SCH ×2 (06:23→16:33)
[2023-01-20 07:33] LABS: CHLORIDE 95 mEq/L (98-107)
[2023-01-20] MEDS: ENOXAPARIN 40MG/0.4ML SYR SUBCUT SCH (08:32)
[2023-01-20] MEDS: LISINOPRIL 5MG TABLET PO SCH (08:33)
[2023-01-20] MEDS: METOLAZONE 2.5MG TABLET PO SCH (08:33)
[2023-01-20] MEDS: CARVEDILOL 6.25 MG TABLET PO SCH ×2 (08:33→20:04)
[2023-01-20] MEDS: POTASSIUM CHLORIDE 20MEQ TABLET SR PO SCH (08:33)
[2023-01-20] MEDS: ASPIRIN 81MG TABLET PO SCH (08:34)
[2023-01-20] MEDS: ACETAMINOPHEN 325MG TABLET PO PRN (12:08)
[2023-01-20] MEDS: HYDROCODONE/ACETAMINOPHEN 5/325MG TABLET PO PRN (22:58)
[2023-01-21] VITALS: BP 93/64
[2023-01-21 04:00] VITALS: BP 97/64
[2023-01-21] MEDS: FUROSEMIDE 100MG/10ML VIAL IVP SCH ×2 (06:21→17:05)
[2023-01-21 08:00] VITALS: BP 92/61
[2023-01-21] MEDS: LISINOPRIL 5MG TABLET PO SCH (09:00)
[2023-01-21] MEDS: CARVEDILOL 6.25 MG TABLET PO SCH (09:00)
[2023-01-21] MEDS: POTASSIUM CHLORIDE 20MEQ TABLET SR PO SCH (09:26)
[2023-01-21] MEDS: METOLAZONE 2.5MG TABLET PO SCH (09:26)
[2023-01-21] MEDS: ACETAMINOPHEN 325MG TABLET PO PRN (09:26)
[2023-01-21] MEDS: ASPIRIN 81MG TABLET PO SCH (09:26)
[2023-01-21] MEDS: ENOXAPARIN 40MG/0.4ML SYR SUBCUT SCH (09:26)
[2023-01-21] MEDS: HYDROCODONE/ACETAMINOPHEN 5/325MG TABLET PO PRN (11:34)
[2023-01-21 12:00] VITALS: BP 88/57
[2023-01-21 16:00] VITALS: BP 86/56
[2023-01-21 17:01] VITALS: BP 86/56
== END 2023-01-21 19:26 | disposition home or self-care (01) | DRG 194 ==
LOC: ER 15:48 → MICUSO 22:05 → 7WST 01-17 00:04
PROVIDERS: ADMIT Internal Medicine; ATTEND Internal Medicine
DX: I11.0 Hypertensive heart disease with heart failure (principal); E43 Unspecified severe protein-calorie malnutrition; I47.20 Ventricular tachycardia, unspecified; I42.0 Dilated cardiomyopathy; I50.23 Acute on chronic systolic (congestive) heart failure; I07.1 Rheumatic tricuspid insufficiency; D64.9 Anemia, unspecified; E87.6 Hypokalemia; D72.819 Decreased white blood cell count, unspecified; Z68.22 Body mass index [BMI] 22.0-22.9, adult; Z86.718 Personal history of other venous thrombosis and embolism; Z91.199 Patient's noncompliance with other medical treatment and regimen due to unspecified reason; Z83.3 Family history of diabetes mellitus; Z82.49 Family history of ischemic heart disease and other diseases of the circulatory system
CPT/HCPCS: 36415; 36600; 71045; 80048; 80053; 80305; 82375; 82805; 83880; 84484; 85025; 93970; 99285; J0456; J0696; J1650; J1940; J7060

== ENCOUNTER 2023-02-25 08:31 | Emergency (ER) | payer MEDICAID ==
[~2023-02-25] VITALS: Ht 188 cm; Wt 67.0 kg
[~2023-02-25 08:31] MED LIST changes: -ATOR20TA65 PO; +FURO80TA87 MT; +METO2.5T2 MT; -SPIR25TA MT
[2023-02-25 08:44] VITALS: BP 94/74
[2023-02-25] MEDS ORDERED: LISI-186 MT (09:25)
[2023-02-25] MEDS ORDERED: POTA-205 MT (09:25)
[2023-02-25] MEDS ORDERED: CARV3.1242 MT (09:25)
[2023-02-25] MEDS ORDERED: ASPI-1497 MT (09:25)
[2023-02-25] MEDS ORDERED: FURO40TA5 MT (09:25)
[2023-02-25] MEDS ORDERED: FURO80TA87 MT (09:25)
[2023-02-25] MEDS ORDERED: METO2.5T2 MT (09:25)
== END 2023-02-25 09:38 | disposition home or self-care (01) ==
LOC: ER 08:31
DX: Z76.0 Encounter for issue of repeat prescription (principal)
CPT/HCPCS: 99281; 99283

== ENCOUNTER 2023-03-21 20:42 | Emergency (ER) | payer MEDICAID ==
[~2023-03-21] VITALS: Ht 188 cm; Wt 73.0 kg
[2023-03-21 20:47] VITALS: BP 92/55
[2023-03-21] MEDS ORDERED: FUROSEMIDE 20MG TABLET PO ONE (21:45)
[2023-03-21] MEDS ORDERED: CARVEDILOL 3.125 MG TABLET PO ONE (21:45)
[2023-03-21] MEDS ORDERED: LISINOPRIL 2.5MG TABLET PO ONE (21:45)
[2023-03-21 22:22] LABS: CHLORIDE 103 mEq/L (98-107)
[2023-03-21 22:28] LABS: BASOPHILS % 1.2 % (0.0-2.0); EOSINOPHILS % 3.7 % (0.0-5.0); HEMATOCRIT. 29.4 % (42.0-52.0); HEMOGLOBIN. 9.1 g/dL (14.0-18.0); LYMPHOCYTES % 16.8 % (20.0-50.0); MEAN CORPUSCULAR HEMOGLOBIN 25.6 pg (28.0-32.0); MEAN CORPUSCULAR VOLUME 83.2 fL (80.0-94.0); NEUTROPHILS % 65.3 % (40.0-76.0); PLATELET 264 x1000/uL (130-400); RED BLOOD CELL COUNT 3.53 mill/uL (4.7-6.1); RED CELL DISTRIBUTION WIDTH 22.2 % (11.6-14.6)
[2023-03-21] MEDS ORDERED: MAGNESIUM 2 G PREMIX 50 ML IV ONE (22:30)
[2023-03-21 23:23] LABS: PLATELET ESTIMATE NORMAL
[2023-03-21] MEDS ORDERED: FUROSEMIDE 40MG TABLET PO NR (23:45)
[2023-03-21] MEDS ORDERED: FURO40TA5 MT (23:55)
[2023-03-21] MEDS ORDERED: LISI-186 MT (23:55)
[2023-03-21] MEDS ORDERED: ASPI-1497 MT (23:55)
[2023-03-21] MEDS ORDERED: CARV3.1242 MT (23:55)
[2023-03-21] MEDS ORDERED: POTA-205 MT (23:55)
== END 2023-03-22 02:07 | disposition home or self-care (01) ==
LOC: ER 20:42
DX: I11.0 Hypertensive heart disease with heart failure (principal); I50.9 Heart failure, unspecified; D64.9 Anemia, unspecified; Z79.899 Other long term (current) drug therapy
CPT/HCPCS: 36415; 71045; 80053; 83880; 85025; 93005; 96365; 99285; J3475

== ENCOUNTER 2023-05-27 09:49 | Inpatient (IN) | payer MEDICAID ==
[~2023-05-27] VITALS: Ht 188 cm; Wt 75.7 kg
[~2023-05-27 09:49] MED LIST changes: -ASPI-1497 MT; +ASPI-1497 PO; -CARV3.1242 MT; +CARV3.1242 PO; -FURO40TA5 MT; -FURO80TA87 MT; +FURO80TA87 PO; -LISI-186 MT; -METO2.5T2 MT; -POTA-205 MT; +POTA-205 PO; +SPIR25TA PO
[2023-05-27 10:43] LABS: BASOPHILS % 0.8 % (0.0-2.0); EOSINOPHILS % 5.4 % (0.0-5.0); HEMATOCRIT. 29.6 % (42.0-52.0); HEMOGLOBIN. 9.5 g/dL (14.0-18.0); LYMPHOCYTES % 18.4 % (20.0-50.0); MEAN CORPUSCULAR HEMOGLOBIN 27.6 pg (28.0-32.0); MEAN CORPUSCULAR VOLUME 86.1 fL (80.0-94.0); MEAN PLATELET VOLUME 7.3 fl (7.4-10.4); MONOCYTES % 13.2 % (2.0-8.0); NEUTROPHILS % 62.2 % (40.0-76.0); PLATELET 252 x1000/uL (130-400); RED BLOOD CELL COUNT 3.44 mill/uL (4.7-6.1); RED CELL DISTRIBUTION WIDTH 22.6 % (11.6-14.6)
[2023-05-27 10:50] LABS: CHLORIDE 102 mEq/L (98-107)
[2023-05-27 12:15] LABS: PLATELET ESTIMATE NORMAL
[2023-05-27] MEDS ORDERED: FUROSEMIDE 40MG/4ML VIAL IV ONE (12:45)
[2023-05-27] MEDS ORDERED: ASPIRIN 81MG TABLET PO ONE (12:45)
[2023-05-27] MEDS ORDERED: ACETAMINOPHEN WITH CODEINE 300/30MG TABLET PO ONE (13:30)
[2023-05-27] MEDS ORDERED: SODIUM CHLORIDE 0.9% 250 ML IV ONE (14:45)
[2023-05-27 15:31] LABS: CLARITY URINE CLEAR (CLEAR); COLOR URINE YELLOW (YELLOW); KETONES URINE NEGATIVE (NEGATIVE); LEUKOCYTE ESTERASE URINE NEGATIVE (NEGATIVE); NITRITE URINE NEGATIVE (NEGATIVE); OCCULT BLOOD URINE NEGATIVE (NEGATIVE); PROTEIN URINE NEGATIVE (NEGATIVE); SPECIFIC GRAVITY URINE 1.007 (1.005-1.030)
[2023-05-27] MEDS ORDERED: SODIUM CHLORIDE 0.9% 500 ML IV ONE (17:15)
[2023-05-27 19:33] VITALS: BP 93/64; PULSE 77; RESP 18; TEMP 97.5
[2023-05-27 20:05] VITALS: BP 93/64; PULSE 77; RESP 18; TEMP 97.5
[2023-05-27] MEDS ORDERED: ACETAMINOPHEN 325MG TABLET PO PRN ×2 (20:15)
[2023-05-27] MEDS ORDERED: DOCUSATE SODIUM 100MG CAPSULE PO PRN (20:15)
[2023-05-27] MEDS ORDERED: GUAIFENESIN 200MG/10ML SUGAR FREE UDC PO PRN (20:15)
[2023-05-27] MEDS ORDERED: IPRATROPIUM/ALBUTEROL 0.5-3(2.5)MG/3ML NEB HHN PRN (20:15)
[2023-05-27] MEDS ORDERED: MAGNESIUM/ALUMINUM HYDROXIDE/SIMETHICONE 30ML UDC PO PRN (20:15)
[2023-05-27] MEDS ORDERED: ONDANSETRON HCL 4MG/2ML INJ IV PRN (20:15)
[2023-05-27] MEDS: FAMOTIDINE 20MG/2ML VIAL IV SCH (21:04)
[2023-05-27] MEDS: ENOXAPARIN 40MG/0.4ML SYR SUBCUT SCH (21:04)
[2023-05-27] MEDS: FUROSEMIDE 100MG/10ML VIAL IV SCH (21:05)
[2023-05-27] MEDS: MIDODRINE HCL 5MG TABLET PO SCH (21:05)
[2023-05-27] MEDS: SPIRONOLACTONE 25MG TABLET PO SCH (21:06)
[2023-05-27 22:25] LABS: CHLORIDE 105 mEq/L (98-107)
[2023-05-27 22:33] LABS: CREATINE KINASE MB FRACTION 2.5 ng/mL (0.5-3.6)
[2023-05-27 22:36] LABS: HDL CHOLESTEROL 41 mg/dL (40-59); LDL CHOLESTEROL 73 mg/dL (5-100); T4 FREE 1.18 ng/dL (0.76-1.46)
[2023-05-28] VITALS: BP 98/62; PULSE 85; RESP 18; TEMP 97.8
[2023-05-28 04:00] VITALS: BP 102/69; PULSE 86; RESP 20; TEMP 97.9
[2023-05-28 07:15] LABS: BASOPHILS % 0.5 % (0.0-2.0); EOSINOPHILS % 5.5 % (0.0-5.0); HEMOGLOBIN. 9.4 g/dL (14.0-18.0); LYMPHOCYTES % 21.6 % (20.0-50.0); MEAN CORPUSCULAR HEMOGLOBIN 28.1 pg (28.0-32.0); MEAN CORPUSCULAR VOLUME 86.9 fL (80.0-94.0); MONOCYTES % 10.9 % (2.0-8.0); NEUTROPHILS % 61.5 % (40.0-76.0); PLATELET 244 x1000/uL (130-400); RED BLOOD CELL COUNT 3.34 mill/uL (4.7-6.1); RED CELL DISTRIBUTION WIDTH 22.4 % (11.6-14.6)
[2023-05-28 08:00] VITALS: BP 101/60; PULSE 86; RESP 18; TEMP 97.6
[2023-05-28] MEDS: FUROSEMIDE 100MG/10ML VIAL IV SCH (08:31)
[2023-05-28] MEDS: FAMOTIDINE 20MG/2ML VIAL IV SCH ×2 (08:31→08:38)
[2023-05-28] MEDS: ASPIRIN 81MG EC TABLET PO SCH (08:31)
[2023-05-28] MEDS: MIDODRINE HCL 5MG TABLET PO SCH ×3 (08:32→17:42)
[2023-05-28] MEDS: SPIRONOLACTONE 25MG TABLET PO SCH (08:32)
[2023-05-28 10:46] LABS: CHLORIDE 103 mEq/L (98-107)
[2023-05-28 12:00] VITALS: BP 95/54; PULSE 87; RESP 18; TEMP 97.5
[2023-05-28 16:00] VITALS: BP 101/76; PULSE 89; RESP 18; TEMP 97.7
[2023-05-28 20:00] VITALS: BP 105/65; PULSE 90; RESP 18; TEMP 97.5
[2023-05-28] MEDS: ENOXAPARIN 40MG/0.4ML SYR SUBCUT SCH (20:23)
[2023-05-29] VITALS: PULSE 79; RESP 20; TEMP 98.2
[2023-05-29 04:00] VITALS: BP 112/65; PULSE 86; RESP 19; TEMP 97.5
[2023-05-29 08:00] VITALS: BP 105/68; PULSE 94; RESP 16; TEMP 97.4
[2023-05-29] MEDS: MIDODRINE HCL 5MG TABLET PO SCH ×2 (08:12→12:59)
[2023-05-29] MEDS: ASPIRIN 81MG EC TABLET PO SCH (08:12)
[2023-05-29] MEDS: SPIRONOLACTONE 25MG TABLET PO SCH (08:12)
[2023-05-29] MEDS: FUROSEMIDE 100MG/10ML VIAL IV SCH (08:13)
[2023-05-29] MEDS ORDERED: SPIR25TA PO (08:58)
[2023-05-29] MEDS ORDERED: POTA-205 PO (08:58)
[2023-05-29] MEDS ORDERED: CARV3.1242 PO (08:58)
[2023-05-29] MEDS ORDERED: ASPI-1497 PO (08:58)
[2023-05-29] MEDS ORDERED: FURO80TA87 PO (08:58)
[2023-05-29] MEDS: FAMOTIDINE 20MG/2ML VIAL IV SCH (09:00)
[2023-05-29 10:05] VITALS: BP 105/105; PULSE 94; TEMP 97.4; O2SAT 68
[2023-05-29 11:18] LABS: *AMPHETAMINES SCREEN URINE NEGATIVE (NEGATIVE); *BARBITURATES SCREEN URINE NEGATIVE (NEGATIVE); *BENZODIAZEPINES SCREEN URINE NEGATIVE (NEGATIVE); *COCAINE SCREEN URINE NEGATIVE (NEGATIVE); CANNABINOID URINE SCREEN PRESUMTIVE POSITIVE (NEGATIVE); METHADONE URINE SCREEN NEGATIVE (NEGATIVE); OPIATES URINE SCREEN PRESUMTIVE POSITIVE (NEGATIVE); PHENCYCLIDINE URINE SCREEN NEGATIVE (NEGATIVE)
== END 2023-05-29 15:00 | disposition home or self-care (01) | DRG 194 ==
LOC: ER 09:49 → 7WST 14:16 → EDBEDREQ 14:26 → EDBEDREQTM 14:26
PROVIDERS: ADMIT Internal Medicine; ATTEND Internal Medicine
DX: I11.0 Hypertensive heart disease with heart failure (principal); E43 Unspecified severe protein-calorie malnutrition; E87.1 Hypo-osmolality and hyponatremia; I50.23 Acute on chronic systolic (congestive) heart failure; Z68.21 Body mass index [BMI] 21.0-21.9, adult; D50.9 Iron deficiency anemia, unspecified; J44.9 Chronic obstructive pulmonary disease, unspecified; E80.6 Other disorders of bilirubin metabolism; Z59.00 Homelessness unspecified; Z82.49 Family history of ischemic heart disease and other diseases of the circulatory system; Z91.148 Patient's other noncompliance with medication regimen for other reason; Z83.3 Family history of diabetes mellitus
CPT/HCPCS: 36415; 71045; 80048; 80053; 80061; 80076; 80305; 81003; 82248; 82553; 83036; 83880; 84439; 84443; 84484; 85025; 93005; 99291; J1650; J1940; J3490; J7040; J7050

== ENCOUNTER 2023-07-10 21:52 | Inpatient (IN) | payer MEDICAID ==
[~2023-07-10] VITALS: Ht 188 cm; Wt 70.7 kg
[2023-07-10] MEDS ORDERED: GUAIFENESIN 600MG ER TABLET PO ONE (22:45)
[2023-07-11 00:33] LABS: BASOPHILS % 1.3 % (0.0-2.0); EOSINOPHILS % 1.6 % (0.0-5.0); HEMOGLOBIN. 8.9 g/dL (14.0-18.0); LYMPHOCYTES % 15.5 % (20.0-50.0); MEAN CORPUSCULAR HEMOGLOBIN 28.5 pg (28.0-32.0); MEAN CORPUSCULAR HGB CONC 31.7 g/dL (31.0-37.0); MEAN PLATELET VOLUME 8.7 fl (7.4-10.4); MONOCYTES % 14.1 % (2.0-8.0); NEUTROPHILS % 67.5 % (40.0-76.0); PLATELET 249 x1000/uL (130-400); RED BLOOD CELL COUNT 3.12 mill/uL (4.7-6.1); RED CELL DISTRIBUTION WIDTH 19.8 % (11.6-14.6); WHITE BLOOD COUNT 6.1 x1000/uL (4.5-11.0)
[2023-07-11 00:40] LABS: CHLORIDE 105 mEq/L (98-107); INDEX HEMOLYSI 2 (1-3); INDEX ICTERIC 2 (1-4); INDEX LIPEMIC 1 (1-3); POTASSIUM 4.3 mEq/L (3.5-5.1); SODIUM 136 mEq/L (136-145)
[2023-07-11 00:46] LABS: DIFFERENTIAL COMMENT 1
[2023-07-11 00:51] LABS: ALANINE AMINOTRANSFERASE 23 IU/L (13-61); ALBUMIN 3.1 g/dL (3.4-5.0); ASPARTATE AMINOTRANSFERASE 32 IU/L (15-37); BILIRUBIN TOTAL 4.1 mg/dL (0.1-1.0); CALCIUM 9.1 mg/dL (8.5-10.1); CARBON DIOXIDE 27 mEq/L (21-32); CREATININE 1.1 mg/dL (0.6-1.3); ETHANOL BLOOD < 10 mg/dL (-10); GLUCOSE 93 mg/dL (70-105); NT PRO B-TYPE NATRIURETIC PEP 6291 pg/mL (5-125); PROTEIN TOTAL 8.2 g/dL (6.0-8.3); TROPONIN I HIGH SENSITIVITY 23 ng/L (<78); UREA NITROGEN BLOOD 25 mg/dL (7-21)
[2023-07-11] MEDS ORDERED: FUROSEMIDE 40MG/4ML VIAL IVP NR (01:15)
[2023-07-11 06:49] VITALS: BP 113/69; PULSE 86; RESP 20; TEMP 97.7
[2023-07-11 07:30] VITALS: BP 100/64; PULSE 74; RESP 18; TEMP 99.3
[2023-07-11 08:00] VITALS: BP 100/64; PULSE 74; RESP 18; TEMP 99.3
[2023-07-11] MEDS ORDERED: IPRATROPIUM/ALBUTEROL 0.5-3(2.5)MG/3ML NEB HHN PRN (08:00)
[2023-07-11] MEDS ORDERED: GUAIFENESIN 200MG/10ML SUGAR FREE UDC PO PRN ×2 (08:00→09:15)
[2023-07-11] MEDS ORDERED: ENOXAPARIN 40MG/0.4ML SYR SUBCUT SCH (08:00)
[2023-07-11] MEDS ORDERED: CLONIDINE 0.1MG TABLET PO PRN ×2 (08:00→09:15)
[2023-07-11] MEDS ORDERED: DOCUSATE SODIUM 100MG CAPSULE PO PRN ×2 (08:00→09:15)
[2023-07-11] MEDS ORDERED: FUROSEMIDE 40MG/4ML VIAL IVP SCH (09:00)
[2023-07-11] MEDS ORDERED: ONDANSETRON HCL 4MG/2ML INJ IV PRN (09:15)
[2023-07-11] MEDS ORDERED: HYDROCODONE/ACETAMINOPHEN 5/325MG TABLET PO PRN (09:15)
[2023-07-11] MEDS ORDERED: LORAZEPAM 2MG/ML CPJ IV PRN (09:15)
[2023-07-11] MEDS ORDERED: NA PHOS,M-B/NA PHOS,DI-BA ENEMA 118ML PR PRN (09:15)
[2023-07-11] MEDS ORDERED: IPRATROPIUM/ALBUTEROL 0.5-3(2.5)MG/3ML NEB NEB PRN (09:15)
[2023-07-11] MEDS ORDERED: DIPHENHYDRAMINE 50MG/ML VIAL IV PRN (09:15)
[2023-07-11] MEDS ORDERED: ACETAMINOPHEN 325MG TABLET PO PRN (09:15)
[2023-07-11] MEDS ORDERED: MAGNESIUM/ALUMINUM HYDROXIDE/SIMETHICONE 30ML UDC PO PRN (09:15)
[2023-07-11] MEDS ORDERED: NALOXONE HCL 0.4MG/ML VIAL IV PRN (09:30)
[2023-07-11] MEDS ORDERED: LIP40 PO (10:16)
[2023-07-11] MEDS ORDERED: LISI-186 PO (10:16)
[2023-07-11] MEDS ORDERED: METO-396 PO (10:16)
[2023-07-11] MEDS: ASPIRIN 81MG EC TABLET PO SCH (10:33)
[2023-07-11] MEDS ORDERED: *PATIENT'S OWN MEDICATION STORAGE XX SCH (11:15)
[2023-07-11 11:36] LABS: CLARITY URINE CLEAR (CLEAR); COLOR URINE YELLOW (YELLOW); GLUCOSE URINE NEGATIVE (NEGATIVE); KETONES URINE NEGATIVE (NEGATIVE); LEUKOCYTE ESTERASE URINE NEGATIVE (NEGATIVE); NITRITE URINE NEGATIVE (NEGATIVE); OCCULT BLOOD URINE NEGATIVE (NEGATIVE); PROTEIN URINE NEGATIVE (NEGATIVE); SPECIFIC GRAVITY URINE 1.008 (1.005-1.030)
[2023-07-11 12:00] VITALS: BP 113/78; PULSE 88; RESP 18; TEMP 98.6
[2023-07-11 14:41] LABS: *AMPHETAMINES SCREEN URINE NEGATIVE (NEGATIVE); *BARBITURATES SCREEN URINE NEGATIVE (NEGATIVE); *BENZODIAZEPINES SCREEN URINE NEGATIVE (NEGATIVE); *COCAINE SCREEN URINE NEGATIVE (NEGATIVE); CANNABINOID URINE SCREEN PRESUMTIVE POSITIVE (NEGATIVE); ECSTASY MDMA SCREEN URINE NEGATIVE (NEGATIVE); METHADONE URINE SCREEN NEGATIVE (NEGATIVE); OPIATES URINE SCREEN NEGATIVE (NEGATIVE); PHENCYCLIDINE URINE SCREEN NEGATIVE (NEGATIVE)
[2023-07-11 16:00] VITALS: BP 103/63; PULSE 90; RESP 18; TEMP 97.7
[2023-07-11] MEDS: FUROSEMIDE 40MG/4ML VIAL IV SCH (16:59)
[2023-07-11 20:00] VITALS: BP 96/70; PULSE 48; RESP 22; TEMP 97.4
[2023-07-12] VITALS: BP 99/66; PULSE 79; RESP 19; TEMP 97.5
[2023-07-12 04:00] VITALS: BP 106/74; PULSE 78; RESP 22; TEMP 97.3
[2023-07-12 06:23] LABS: BASOPHILS % 1.1 % (0.0-2.0); EOSINOPHILS % 1.9 % (0.0-5.0); HEMATOCRIT. 29.6 % (42.0-52.0); HEMOGLOBIN. 9.6 g/dL (14.0-18.0); LYMPHOCYTES % 16.7 % (20.0-50.0); MEAN CORPUSCULAR HEMOGLOBIN 28.8 pg (28.0-32.0); MEAN CORPUSCULAR HGB CONC 32.4 g/dL (31.0-37.0); MEAN CORPUSCULAR VOLUME 88.9 fL (80.0-94.0); MEAN PLATELET VOLUME 8.9 fl (7.4-10.4); MONOCYTES % 11.8 % (2.0-8.0); NEUTROPHILS % 68.5 % (40.0-76.0); PLATELET 260 x1000/uL (130-400); RED BLOOD CELL COUNT 3.33 mill/uL (4.7-6.1); RED CELL DISTRIBUTION WIDTH 19.9 % (11.6-14.6); WHITE BLOOD COUNT 6.1 x1000/uL (4.5-11.0)
[2023-07-12 06:24] LABS: CHLORIDE 105 mEq/L (98-107); INDEX HEMOLYSI 1 (1-3); INDEX ICTERIC 3 (1-4); INDEX LIPEMIC 1 (1-3); POTASSIUM 3.7 mEq/L (3.5-5.1); SODIUM 136 mEq/L (136-145)
[2023-07-12] MEDS: FUROSEMIDE 40MG/4ML VIAL IV SCH ×3 (06:31→18:57)
[2023-07-12 06:40] LABS: ALANINE AMINOTRANSFERASE 22 IU/L (13-61); ASPARTATE AMINOTRANSFERASE 27 IU/L (15-37); BILIRUBIN TOTAL 5.3 mg/dL (0.1-1.0); CALCIUM 8.7 mg/dL (8.5-10.1); CARBON DIOXIDE 26 mEq/L (21-32); CHOLESTEROL 70 mg/dL (<200); CREATININE 1.2 mg/dL (0.6-1.3); GLUCOSE 87 mg/dL (70-105); HDL CHOLESTEROL 29 mg/dL (40-59); LDL CHOLESTEROL 49 mg/dL (5-100); PROTEIN TOTAL 7.9 g/dL (6.0-8.3); T4 FREE 1.46 ng/dL (0.76-1.46); TRIGLYCERIDE 58 mg/dL (0-150); UREA NITROGEN BLOOD 25 mg/dL (7-21)
[2023-07-12 07:16] LABS: DIFFERENTIAL COMMENT 1
[2023-07-12 08:00] VITALS: BP 126/81; PULSE 94; RESP 18; TEMP 100.4
[2023-07-12] MEDS: ENOXAPARIN 40MG/0.4ML SYR SUBCUT SCH (09:18)
[2023-07-12] MEDS: ASPIRIN 81MG EC TABLET PO SCH (09:18)
[2023-07-12] MEDS: ACETAMINOPHEN 325MG TABLET PO PRN (09:19)
[2023-07-12 12:00] VITALS: BP 101/62; PULSE 88; RESP 18; TEMP 101.7
[2023-07-12 16:00] VITALS: BP 98/72; PULSE 89; RESP 20; TEMP 100.6
[2023-07-12 20:00] VITALS: BP 117/87; PULSE 87; RESP 20; TEMP 98.1
[2023-07-12] MEDS: FAMOTIDINE 20MG TABLET PO SCH (20:41)
[2023-07-13] VITALS: BP 102/67; PULSE 94; RESP 18; TEMP 98.7
[2023-07-13 04:00] VITALS: PULSE 96; RESP 20; TEMP 98.1
[2023-07-13 05:55] LABS: HEMATOCRIT. 28.6 % (42.0-52.0); HEMOGLOBIN. 9.3 g/dL (14.0-18.0); MEAN CORPUSCULAR HEMOGLOBIN 28.6 pg (28.0-32.0); MEAN CORPUSCULAR HGB CONC 32.4 g/dL (31.0-37.0); MEAN CORPUSCULAR VOLUME 88.2 fL (80.0-94.0); MEAN PLATELET VOLUME 8.4 fl (7.4-10.4); PLATELET 231 x1000/uL (130-400); RED BLOOD CELL COUNT 3.25 mill/uL (4.7-6.1); WHITE BLOOD COUNT 10.7 x1000/uL (4.5-11.0)
[2023-07-13 06:18] LABS: CHLORIDE 102 mEq/L (98-107); INDEX HEMOLYSI 1 (1-3); INDEX ICTERIC 3 (1-4); INDEX LIPEMIC 1 (1-3); POTASSIUM 3.4 mEq/L (3.5-5.1); SODIUM 135 mEq/L (136-145)
[2023-07-13 06:26] LABS: ALANINE AMINOTRANSFERASE 20 IU/L (13-61); ALBUMIN 2.9 g/dL (3.4-5.0); ASPARTATE AMINOTRANSFERASE 28 IU/L (15-37); BILIRUBIN TOTAL 6.5 mg/dL (0.1-1.0); CALCIUM 8.7 mg/dL (8.5-10.1); CARBON DIOXIDE 26 mEq/L (21-32); CREATININE 1.2 mg/dL (0.6-1.3); GLUCOSE 124 mg/dL (70-105); PROTEIN TOTAL 7.6 g/dL (6.0-8.3); UREA NITROGEN BLOOD 26 mg/dL (7-21)
[2023-07-13 07:17] LABS: DIFFERENTIAL COMMENT 1
[2023-07-13 08:00] VITALS: BP 110/72; PULSE 77; RESP 20; TEMP 97.5
[2023-07-13] MEDS: ACETAMINOPHEN 325MG TABLET PO PRN (09:10)
[2023-07-13] MEDS: ASPIRIN 81MG EC TABLET PO SCH (09:11)
[2023-07-13] MEDS: ENOXAPARIN 40MG/0.4ML SYR SUBCUT SCH (09:11)
[2023-07-13 12:00] VITALS: BP 97/75; PULSE 81; RESP 18; TEMP 98.4
[2023-07-13] MEDS: METOPROLOL TARTRATE 25MG TABLET PO SCH ×2 (12:00→20:53)
[2023-07-13] MEDS ORDERED: POTASSIUM CHLORIDE 20MEQ TABLET SR PO SCH (13:15)
[2023-07-13 13:41] LABS: ANISOCYTOSIS 2+; PLATELET ESTIMATE NORMAL
[2023-07-13] MEDS ORDERED: IMOD MT (15:44)
[2023-07-13 16:00] VITALS: BP 106/77; PULSE 91; RESP 18; TEMP 97
[2023-07-13] MEDS: SPIRONOLACTONE 25MG TABLET PO SCH (17:36)
[2023-07-13] MEDS: FUROSEMIDE 100MG/10ML VIAL IV SCH (17:46)
[2023-07-13 20:00] VITALS: BP 135/83; PULSE 100; RESP 18; TEMP 97.5
[2023-07-13 20:15] LABS: PHOSPHORUS 2.2 mg/dL (2.5-4.9)
[2023-07-13] MEDS: FAMOTIDINE 20MG TABLET PO SCH (20:53)
[2023-07-14] VITALS: BP 97/67; PULSE 86; RESP 18; TEMP 97.9
[2023-07-14 04:00] VITALS: BP 105/73; PULSE 80; RESP 18; RESP 19; TEMP 97.5
[2023-07-14 08:00] VITALS: BP 102/57; PULSE 52; PULSE 84; RESP 18; TEMP 97.7
[2023-07-14] MEDS: FUROSEMIDE 100MG/10ML VIAL IV SCH (08:21)
[2023-07-14] MEDS: ENOXAPARIN 40MG/0.4ML SYR SUBCUT SCH (08:22)
[2023-07-14] MEDS: SPIRONOLACTONE 25MG TABLET PO SCH (08:22)
[2023-07-14] MEDS: METOPROLOL TARTRATE 25MG TABLET PO SCH (08:22)
[2023-07-14] MEDS: ASPIRIN 81MG EC TABLET PO SCH (08:22)
[2023-07-14 11:22] VITALS: BP 115/65; PULSE 82; TEMP 97.6; O2SAT 98
[2023-07-14 12:00] VITALS: BP 115/65; PULSE 82; RESP 20; TEMP 97.6
== END 2023-07-14 19:20 | disposition home or self-care (01) | DRG 194 ==
LOC: ER 22:45 → MICUSO 07-11 02:53 → EDBEDREQ 07-11 02:55 → 8WST 07-11 06:19
PROVIDERS: ADMIT Internal Medicine; ATTEND Internal Medicine
DX: I11.0 Hypertensive heart disease with heart failure (principal); J96.01 Acute respiratory failure with hypoxia; E44.1 Mild protein-calorie malnutrition; E87.1 Hypo-osmolality and hyponatremia; I27.20 Pulmonary hypertension, unspecified; E88.09 Other disorders of plasma-protein metabolism, not elsewhere classified; I50.23 Acute on chronic systolic (congestive) heart failure; I42.9 Cardiomyopathy, unspecified; D64.9 Anemia, unspecified; F17.200 Nicotine dependence, unspecified, uncomplicated; E11.9 Type 2 diabetes mellitus without complications; I08.1 Rheumatic disorders of both mitral and tricuspid valves; N62 Hypertrophy of breast; Z83.3 Family history of diabetes mellitus; Z82.49 Family history of ischemic heart disease and other diseases of the circulatory system; Z91.199 Patient's noncompliance with other medical treatment and regimen due to unspecified reason; Z59.01 Sheltered homelessness; Z68.20 Body mass index [BMI] 20.0-20.9, adult; Z79.4 Long term (current) use of insulin
CPT/HCPCS: 36415; 71045; 76700; 76705; 80053; 80061; 80305; 80320; 81003; 82150; 83735; 83880; 84100; 84439; 84443; 84484; 85025; 85379; 93005; 93970; 99285; J1650; J1940; J2405; G0480